=== PATIENT | male | born 1975 | race Caucasian/White ===

== ENCOUNTER 2019-01-18 12:51 | Emergency (ER) | payer OTHER ==
[2019-01-18 13:07] VITALS: BP 145/85; PULSE 73; O2SAT 98
[2019-01-18] MEDS ORDERED: TORAdol 30 mg Injection IM ONE (13:19)
--- NOTE | 2019-01-18 13:27 | ERPHSYRPT ---
- History of Present Illness Time Seen by Provider: 01/18/19 13:24 Source: patient Exam Limitations: no limitations Patient Subjective Stated Complaint: pt here for pain to lower back for a year after a fall, he states the pain in getting worse, he has tried OTC meds with no relief. Triage Nursing Assessment: pt alert, walked in, able to undress self, resp easy , skin w/d/p Physician History: pt here for pain to lower back for a year after a fall, he states the pain in getting worse, he has tried OTC meds with no relief. Timing/Duration: intermittent (for last few months) Method of Injury: unknown Quality: dull, pressure Back Pain Location: lumbar spine Severity of Pain-Max: mild Severity of Pain-Current: moderate Modifying Factors: Improves With: pain medication Associated Symptoms: denies symptoms Allergies/Adverse Reactions: No Known Drug Allergies Allergy (Unverified 01/18/19 13:36) Home Medications: Escitalopram Oxalate [Lexapro] 20 mg DAILY 01/18/19 [History] Levothyroxine Sodium 100 mcg DAILY 01/18/19 [History] PANTOPRAZOLE 40 mg Tablet [Protonix 40MG Tablet] 40 mg DAILY 01/18/19 [ History] Hx Tetanus, Diphtheria Vaccination/Date Given: No Hx Influenza Vaccination/Date Given: No Hx Pneumococcal Vaccination/Date Given: No Immunizations Up to Date: Yes - Review of Systems Constitutional: No Symptoms Eyes: No Symptoms Ears, Nose, & Throat: No Symptoms Respiratory: No Symptoms Cardiac: No Symptoms Abdominal/Gastrointestinal: No Symptoms Musculoskeletal: Back Pain Skin: No Symptoms - Past Medical History Pertinent Past Medical History: No - Past Surgical History Past Surgical History: Yes Gastrointestinal: Appendectomy Musculoskeletal: Orthopedic Surgery Other Surgical History: right knee x2, elbow surgery - Social History Smoking Status: Never smoker Exposure to second hand smoke: No Drug Use: none Patient Lives Alone: No - Nursing Vital Signs Nursing Vital Signs: Initial Vital Signs Temperature 98.2 F 01/18/19 13:02 Pulse Rate 73 01/18/19 13:02 Respiratory Rate 16 01/18/19 13:02 Blood Pressure 145/85 01/18/19 13:02 O2 Sat by Pulse Oximetry 98 01/18/19 13:02 Pain Scale Pain Intensity [] 7 Pain Intensity 7 - Physical Exam General Appearance: no apparent distress Eye Exam: PERRL/EOMI Ears, Nose, Throat Exam: normal ENT inspection Neck Exam: normal inspection Respiratory Exam: normal breath sounds Cardiovascular Exam: regular rate/rhythm Back Exam: decreased range of motion, muscle spasm, No CVA tenderness, No vertebral tenderness, No rash, No point tenderness SpO2: 98 - Radiology Exams L-Spine X-ray Interpretation: Reviewed by me (no acute fracture) Ordered Tests: Active Orders 24 hr Category Date Time Status THORACOLUMBAR SPINE Stat Exams 01/18/19 13:20 Taken Medication Summary Discontinued Medications Generic Name Dose Route Start Last Admin Trade Name Freq PRN Reason Stop Dose Admin Ketorolac Tromethamine 60 mg 01/18/19 13:19 01/18/19 13:39 Toradol 30 Mg Injection IM 01/18/19 13:20 60 mg STAT ONE Administration Ketorolac Tromethamine Confirm 01/18/19 13:37 Toradol 30 Mg Injection Administered 01/18/19 13:38 Dose 60 mg .ROUTE .STK-MED ONE - Progress Progress: improved, pain not gone completely Counseled pt/family regarding: diagnosis, need for follow-up, rad results - Departure Departure Disposition: Home Clinical Impression: Muscle spasm of back Condition: Stable Critical Care Time: No Instructions: Low Back Pain (DC), Back Exercises, Strengthening Your Lower Body and Core Additional Instructions: Discharge/Care Plan ISAIASBHARATH KELLY was seen on 01/18/19 in the Emergency Room. The patient was counseled regarding Diagnosis,Lab results, Imaging studies, need for follow up and when to return to the Emergency Room. Prescriptions given: Discharge Note I have spoken with the patient and/or caregivers. I have explained the patient' s condition, diagnosis and treatment plan based on the information available to me at this time. I have answered the patient's and/or caregiver's questions and addressed any concerns. The patient and/or caregivers have as good understanding of the patient's diagnosis, condition and treatment plan as can be expected at this point. The vital signs have been stable. The patient's condition is stable and appropriate for discharge from the emergency department. The patient will pursue further outpatient evaluation with the primary care physician or other designated or consulting physician as outlined in the discharge instructions. The patient and/or caregivers are agreeable to this plan of care and follow-up instructions have been explained in detail. The patient and/or caregivers have received these instruction. The patient/and or caregivers are aware that any significant change in condition or worsening of symptoms should prompt an immediate return to this or the closest emergency department or call 911. Prescriptions: Cyclobenzaprine HCl 10 mg [Flexeril 10 MG] 10 mg PO TID #30 tablet Naproxen 375 mg [Naprosyn 375 mg] 375 mg PO Q8H #30 tablet
[2019-01-18] MEDS ORDERED: TORAdol 30 mg Injection ONE (13:37)
--- NOTE | 2019-01-18 18:41 | XRAY ---
Indication: Right-sided pain. Remote fall over a year ago. Comparison: None AP/lateral spine centered at thoracolumbar junction demonstrates normal alignment with very minimal T12-L3 anterior wedging either transitional segments versus old injury. No other bony, articular, or soft tissue abnormalities.
== END 2019-01-18 14:17 | disposition home or self-care (01) ==
LOC: ED 12:51
DX: M62.830 Muscle spasm of back (principal); W19.XXXD Unspecified fall, subsequent encounter
CPT/HCPCS: 72080; 96372; 99284; J1885

== ENCOUNTER 2019-02-10 16:42 | Emergency (ER) | payer OTHER ==
[2019-02-10 17:43] VITALS: BP 150/87; PULSE 88; O2SAT 98
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
[2019-02-10] MEDS ORDERED: BACTRIM DS TABLET PO ONE (19:39)
[2019-02-10] MEDS: BACTRIM DS TABLET PO STA (19:41)
--- NOTE | 2019-02-11 08:52 | XRAY ---
Indication: 3rd MCP pain and swelling. No known injury. Comparison: None 3 views of the left hand demonstrates mild radiocarpal joint space narrowing. No other bony, articular, or soft tissue abnormalities.
== END 2019-02-10 19:53 | disposition home or self-care (01) ==
LOC: ED 16:42
DX: L03.114 Cellulitis of left upper limb (principal); R03.0 Elevated blood-pressure reading, without diagnosis of hypertension
CPT/HCPCS: 73130; 99283; A9270-GY

== ENCOUNTER 2019-05-11 10:18 | Emergency (ER) | payer OTHER ==
--- NOTE | 2019-05-11 10:46 | ERPHSYRPT ---
- History of Present Illness Time Seen by Provider: 05/11/19 10:30 Source: patient, family, old records ([facility]/ Dr Sigala's labs) Exam Limitations: no limitations Patient Subjective Stated Complaint: Pt states "I had a mini stroke on the and ever since then I have not felt right since. This morning I am shakey and I cannot open my eyes I get so dizzy." Triage Nursing Assessment: Pt presented to the ed alert and oriented X 3, skin pwd Pt ambulates with an upright steady gait, able to speak in clear full sentences. Pt in no apparent respiratory distress. Physician History: Vertiginous for several days, workup at [facility] including MRI , CT Feeling worse now Timing/Duration: day(s) (6) Severity: moderate Character of Deficits: impaired speech Baseline/Normal Cognition: alert 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 Current Cognition: alert 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 Associated Symptoms: nausea, numbness/tingling in legs/feet, slurred speech, trouble walking Allergies/Adverse Reactions: No Known Drug Allergies Allergy (Verified 02/04/19 20:34) Home Medications: Escitalopram Oxalate [Lexapro] 20 mg DAILY 01/18/19 [History] Levothyroxine Sodium 100 mcg DAILY 01/18/19 [History] PANTOPRAZOLE 40 mg Tablet [Protonix 40MG Tablet] 40 mg PO DAILY 01/18/19 [ History] Hx Tetanus, Diphtheria Vaccination/Date Given: Yes Hx Influenza Vaccination/Date Given: Yes Hx Pneumococcal Vaccination/Date Given: No Immunizations Up to Date: Yes - Past Medical History Pertinent Past Medical History: Yes Neurological History: No Pertinent History ENT History: No Pertinent History Cardiac History: No Pertinent History Respiratory History: No Pertinent History Endocrine Medical History: Hypothyroidism Musculoskeletal History: No Pertinent History GI Medical History: GERD History: No Pertinent History Psycho-Social History: No Pertinent History Male Reproductive Disorders: No Pertinent History Other Medical History: spontaneous pneumo, appendectomy, r knee surgery x2, ulnar nerve surgery - Past Surgical History Past Surgical History: Yes Respiratory: Other Gastrointestinal: Appendectomy Musculoskeletal: Orthopedic Surgery Other Surgical History: right knee x2, elbow surgery - Social History Smoking Status: Never smoker Exposure to second hand smoke: No Drug Use: none Patient Lives Alone: No - Nursing Vital Signs Nursing Vital Signs: Initial Vital Signs Temperature 97.8 F 05/11/19 10:23 Pulse Rate 68 05/11/19 10:23 Respiratory Rate 18 05/11/19 10:23 Blood Pressure 144/96 05/11/19 10:23 O2 Sat by Pulse Oximetry 95 05/11/19 10:23 Pain Scale Pain Intensity 0 - Omer Coma Scale Best Eye Response ([place]): (4) open spontaneously Best Verbal Response ([place]): (5) oriented Best Motor Response ([place]): (6) obeys commands Omer Total: 15 - Physical Exam General Appearance: mild distress Eye Exam: bilateral eye: abnormal EOM (nystagmus with manuevers) Ears, Nose, Throat Exam: normal ENT inspection, moist mucous membranes Neck Exam: normal inspection, non-tender, supple Respiratory: normal breath sounds, lungs clear, airway intact, No respiratory distress Cardiovascular: regular rate/rhythm, No edema Gastrointestinal: soft, No tenderness, No distention Back Exam: normal inspection Extremity Exam: normal inspection, No pedal edema Peripheral Pulses: carotid (R): 2+, carotid (L): 2+ Mental Status: alert, 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, 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 Exam: normal hearing, normal speech, PERRL, tongue midline, No abnormal eye position, No abnormal gag reflex, No abnormal pupil position, No abnormal speech , No facial asymmetry, No facial droop, No facial paresthesias, No facial weakness, No gaze palsy, No hearing deficit (R), No hearing deficit (L), No tongue deviation to R Coordination/Gait: normal finger to nose, normal cerebellar function Motor/Sensory: no motor deficit, no sensory deficit, no pronator drift Skin Exam: normal color, warm, dry, No rash SpO2 Interpretation: normal SpO2: 95 O2 Delivery: Room Air - Course Nursing assessment & vital signs reviewed: Yes EKG Interpreted by Me: RATE (70), Sinus Rhythm, NORMAL AXIS, NORMAL INTERVALS, NORMAL QRS Ordered Tests: Active Orders 24 hr Category Date Time Status Broadband Engineer STAT Care 05/11/19 10:59 Active EKG-ER Only STAT Care 05/11/19 10:45 Active IV Insertion STAT Care 05/11/19 10:45 Active NPO (ED) STAT Care 05/11/19 10:46 Active CBC W DIFF Stat Lab 05/11/19 10:56 Completed CMP Stat Lab 05/11/19 10:56 Completed Lactic Acid Stat Lab 05/11/19 10:45 Completed PROTIME WITH INR Stat Lab 05/11/19 10:56 Completed TROPONIN Stat Lab 05/11/19 11:04 Completed UA W/RFX UR CULTURE Stat Lab 05/11/19 10:46 Uncollected Medication Summary Discontinued Medications Generic Name Dose Route Start Last Admin Trade Name Olivia PRN Reason Stop Dose Admin Diazepam 2.5 mg 05/11/19 10:47 05/11/19 10:54 Valium 10 Mg/2 Ml Syringe IV 05/11/19 10:48 2.5 mg STAT ONE Administration Diazepam Confirm 05/11/19 10:52 Valium 10 Mg/2 Ml Syringe Administered 05/11/19 10:53 Dose 10 mg .ROUTE .STK-MED ONE Meclizine HCl 25 mg 05/11/19 10:48 05/11/19 10:54 Antivert 25 Mg PO 05/11/19 10:49 25 mg STAT ONE Administration Meclizine HCl Confirm 05/11/19 10:52 Antivert 25 Mg Administered 05/11/19 10:53 Dose 25 mg .ROUTE .STK-MED ONE Lab/Rad Data: Laboratory Result Diagrams 05/11/19 10:56 05/11/19 10:56 Laboratory Results 05/11/19 05/11/19 05/11/19 Range/Units 11:04 10:56 10:56 WBC (4.0-10.5) K/mm3 RBC (4.1-5.6) M/mm3 Hgb (12.5-18.0) gm/dl Hct (42-50) % MCV (78-100) fl MCH (26-32) pg MCHC (32-36) g/dl RDW (11.5-14.0) % Plt Count (150-450) K/mm3 MPV (7.5-11.0) fl Gran % (36.0-66.0) % Eos # (Auto) (0-0.5) Absolute Lymphs (auto) (1.0-4.6) Absolute Monos (auto) (0.0-1.3) Lymphocytes % (24.0-44.0) % Monocytes % (0.0-12.0) % Eosinophils % (0.00-5.0) % Basophils % (0.0-0.4) % Absolute Granulocytes (1.4-6.9) Basophils # (0-0.4) PT 11.4 (8.83-12.87) SECONDS INR 1.01 (0.8-3.0) Sodium 139 (137-145) mmol/L Potassium 4.0 (3.5-5.1) mmol/L Chloride 105 (98-107) mmol/L Carbon Dioxide 25 (22-30) mmol/L Anion Gap 12.7 (5-15) MEQ/L BUN 15 (9-20) mg/dL Creatinine 1.03 (0.66-1.25) mg/dL Estimated GFR > 60.0 ML/MIN Glucose 95 (74-106) mg/dL Lactic Acid (0.4-2.0) Calcium 8.9 (8.4-10.2) mg/dL Total Bilirubin 0.70 (0.2-1.3) mg/dL AST 31 (17-59) U/L ALT 35 (0-50) U/L Alkaline Phosphatase 133 H (38-126) U/L Troponin I < 0.012 (0.000-0.034) ng/mL Serum Total Protein 7.6 (6.3-8.2) g/dL Albumin 4.2 (3.5-5.0) g/dL 05/11/19 05/11/19 Range/Units 10:56 10:45 WBC 9.8 (4.0-10.5) K/mm3 RBC 4.94 (4.1-5.6) M/mm3 Hgb 15.5 (12.5-18.0) gm/dl Hct 46.5 (42-50) % MCV 94.1 (78-100) fl MCH 31.4 (26-32) pg MCHC 33.3 (32-36) g/dl RDW 14.2 H (11.5-14.0) % Plt Count 194 (150-450) K/mm3 MPV 10.0 (7.5-11.0) fl Gran % 61.6 (36.0-66.0) % Eos # (Auto) 0.36 (0-0.5) Absolute Lymphs (auto) 2.50 (1.0-4.6) Absolute Monos (auto) 0.86 (0.0-1.3) Lymphocytes % 25.6 (24.0-44.0) % Monocytes % 8.8 (0.0-12.0) % Eosinophils % 3.7 (0.00-5.0) % Basophils % 0.3 (0.0-0.4) % Absolute Granulocytes 6.03 (1.4-6.9) Basophils # 0.03 (0-0.4) PT (8.83-12.87) SECONDS INR (0.8-3.0) Sodium (137-145) mmol/L Potassium (3.5-5.1) mmol/L Chloride (98-107) mmol/L Carbon Dioxide (22-30) mmol/L Anion Gap (5-15) MEQ/L BUN (9-20) mg/dL Creatinine (0.66-1.25) mg/dL Estimated GFR ML/MIN Glucose (74-106) mg/dL Lactic Acid 1.2 (0.4-2.0) Calcium (8.4-10.2) mg/dL Total Bilirubin (0.2-1.3) mg/dL AST (17-59) U/L ALT (0-50) U/L Alkaline Phosphatase (38-126) U/L Troponin I (0.000-0.034) ng/mL Serum Total Protein (6.3-8.2) g/dL Albumin (3.5-5.0) g/dL - Progress Progress: unchanged - Departure Departure Disposition: Home Clinical Impression: Vertigo Condition: Stable Critical Care Time: No Referrals: SAVANAH SHEPHERD DO [ACTIVE STAFF] - Instructions: Vertigo (a Type of Dizziness) (DC) Prescriptions: Diazepam 5 mg [Valium 5 MG] 5 mg PO TID #10 tablet Meclizine HCl 25 mg [Antivert 25 mg] 25 mg PO Q8H #10 tablet
[2019-05-11] MEDS ORDERED: VALIUM 10 MG/2 ML SYRINGE IV ONE (10:47)
[2019-05-11] MEDS ORDERED: ANTIVERT 25 MG PO ONE (10:48)
[2019-05-11] MEDS ORDERED: ANTIVERT 25 MG ONE (10:52)
[2019-05-11] MEDS ORDERED: VALIUM 10 MG/2 ML SYRINGE ONE (10:52)
[2019-05-11 10:56] LABS: Absolute Neutrophil Ct (ANC) 6.03 (1.4-6.9); BASOPHIL % 0.3 % (0.0-0.4); Basophil (Absolute #) 0.03 (0-0.4); Eosinophil % 3.7 % (0.00-5.0); Eosinophil (Absolute #) 0.36 (0-0.5); Hematocrit 46.5 % (42-50); Hemoglobin 15.5 gm/dl (12.5-18.0); Lymphocytes % 25.6 % (24.0-44.0); Mean Cell Volume 94.1 fl (78-100); Mean Corpuscular Hemoglobin 31.4 pg (26-32); Mean Corpuscular Hgb Concent. 33.3 g/dl (32-36); Monocyte (Absolute #) 0.86 (0.0-1.3); Monocytes % 8.8 % (0.0-12.0); Neutrophil % 61.6 % (36.0-66.0); Platelet Count 194 K/mm3 (150-450); Red Blood Count 4.94 M/mm3 (4.1-5.6); Red Cell Distribution Width 14.2 % (11.5-14.0); White Blood Count 9.8 K/mm3 (4.0-10.5)
[2019-05-11 11:05] LABS: INR 1.01 (0.8-3.0); PROTIME 11.4 SECONDS (8.83-12.87)
[2019-05-11 11:08] LABS: ALBUMIN 4.2 g/dL (3.5-5.0); ALKALINE PHOSPHATASE 133 U/L (38-126); ANION GAP 12.7 MEQ/L (5-15); BLOOD UREA NITROGEN 15 mg/dL (9-20); CHLORIDE 105 mmol/L (98-107); Calcium 8.9 mg/dL (8.4-10.2); Carbon Dioxide 25 mmol/L (22-30); Creatinine 1 1.03 mg/dL (0.66-1.25); Glucose 95 mg/dL (74-106); SGOT/AST 31 U/L (17-59); SGPT/ALT 35 U/L (0-50); SODIUM 139 mmol/L (137-145); Total Protein 7.6 g/dL (6.3-8.2)
[2019-05-11 11:35] VITALS: O2SAT 95
[2019-05-11 11:59] VITALS: BP 129/88; PULSE 68
== END 2019-05-11 12:03 | disposition home or self-care (01) ==
LOC: ED 10:18
DX: R42 Dizziness and giddiness (principal)
CPT/HCPCS: 36000; 36415; 80053; 83605; 84484; 85025; 85610; 93005; 93041; 96374; 99284; J3360; A9270-GY

== ENCOUNTER 2019-07-15 20:03 | Emergency (ER) | payer OTHER ==
[2019-07-15] MEDS ORDERED: Zofran 4 MG/2 ML VIAL IV ONE (21:18)
[2019-07-15] MEDS ORDERED: SUBLIMAZE 100 MCG/2 ML IV ONE (21:18)
--- NOTE | 2019-07-15 21:18 | ERPHSYRPT ---
- History of Present Illness Time Seen by Provider: 07/15/19 21:11 Source: patient Exam Limitations: no limitations Patient Subjective Stated Complaint: Patient states that his headache started early Sunday morning and also experienced vomiting that same day. Patient states that he used to get headaches all the time, but this is the first headache he has had in about 6 months. Patient has seen a specialist for migraines and changed diet and quit having problems until now. Triage Nursing Assessment: Patient is ambulatory, alert and oriented, is sensitive to light and sound. [place] headache as constant and pounding, feels like a hot poker is being stuck through the back of head through eyes. Physician History: Pt has had generalized abdominal pain, decreased urine output, a constant headache, left posterior neck pain and vomiting for the past 3 days. LBM was 4 days ago & wnl. Pt denies chest pain, fever, shortness of air. Allergies/Adverse Reactions: No Known Drug Allergies Allergy (Verified 07/15/19 21:06) Home Medications: Levothyroxine Sodium 100 mcg DAILY 01/18/19 [History] PANTOPRAZOLE 40 mg Tablet [Protonix 40MG Tablet] 40 mg PO DAILY 01/18/19 [ History] Bupropion HCl Xl 150 mg [Wellbutrin XL 150 MG] 150 mg PO DAILY 07/15/19 [ History] SUMAtriptan succinate [Imitrex 50 mg] 100 mg PO PRN 07/15/19 [History] Sertraline HCl 50 mg [Zoloft 50 mg Tablet] 50 mg PO DAILY 07/15/19 [History] Hx Tetanus, Diphtheria Vaccination/Date Given: Yes Hx Influenza Vaccination/Date Given: Yes Hx Pneumococcal Vaccination/Date Given: No Immunizations Up to Date: Yes Travel Risk - International Travel Have you traveled outside of the country in past 3 weeks: No Have you or anyone close to you been diagnosed with or: No Do your reside in a community with a known COVID-19 case?: Yes If Yes where:: [facility] - Coronavirus Screening Has patient experienced Coronavirus symptoms: Yes Symptoms experienced: severe headache - Review of Systems Constitutional: No Fever, No Chills Respiratory: No Dyspnea Cardiac: No Chest Pain Abdominal/Gastrointestinal: Abdominal Pain, Nausea, Vomiting, No Diarrhea Genitourinary Symptoms: Other (decreased urine output since 3 days ago.), No Dysuria Musculoskeletal: Neck Pain Neurological: Headache All Other Systems: Reviewed and Negative - Past Medical History Pertinent Past Medical History: Yes Neurological History: No Pertinent History, Migraines ENT History: No Pertinent History Cardiac History: No Pertinent History Respiratory History: No Pertinent History Endocrine Medical History: Hypothyroidism Musculoskeletal History: No Pertinent History GI Medical History: GERD History: No Pertinent History Psycho-Social History: No Pertinent History Male Reproductive Disorders: No Pertinent History Other Medical History: spontaneous pneumo, appendectomy, r knee surgery x2, ulnar nerve release surgery - Past Surgical History Past Surgical History: Yes Neuro Surgical History: No Pertinent History Cardiac: No Pertinent History Respiratory: Other Gastrointestinal: Appendectomy Genitourinary: No Pertinent History Musculoskeletal: Orthopedic Surgery Male Surgical History: No Pertinent History Other Surgical History: right knee x2, elbow surgery - Social History Smoking Status: Never smoker Exposure to second hand smoke: No Drug Use: none Patient Lives Alone: No - Nursing Vital Signs Nursing Vital Signs: Initial Vital Signs Temperature 98.2 F 07/15/19 20:49 Pulse Rate 69 07/15/19 20:49 Respiratory Rate 19 07/15/19 20:49 Blood Pressure 138/94 07/15/19 20:49 O2 Sat by Pulse Oximetry 97 07/15/19 20:49 Pain Scale Pain Intensity 3 - Physical Exam General Appearance: alert Eye Exam: PERRL/EOMI Ears, Nose, Throat Exam: pharynx normal Neck Exam: normal inspection, non-tender Respiratory Exam: normal breath sounds Cardiovascular Exam: normal heart sounds Gastrointestinal/Abdominal Exam: soft, normal bowel sounds Back Exam: normal range of motion Extremity Exam: normal range of motion 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, 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: normal speech, PERRL, tongue midline Motor/Sensory Exam: no motor deficit, no sensory deficit Skin Exam: warm, dry SpO2 Interpretation: normal SpO2: 97 O2 Delivery: Room Air - Course Nursing assessment & vital signs reviewed: Yes Ordered Tests: Active Orders 24 hr Category Date Time Status IV Insertion STAT Care 07/15/19 21:18 Active Isolation, Initiate & Maintain Q4H Care 07/15/19 21:05 Active ABDOMEN AND PELVIS W/0 CONTRAS [CT] Stat Exams 07/15/19 21:19 Ordered HEAD WITHOUT CONTRAST [CT] Stat Exams 04/07/20 21:20 Ordered NECK WO CONTRAST [CT] Stat Exams 07/15/19 21:20 Ordered AMYLASE Stat Lab 07/15/19 21:40 Completed CBC W DIFF Stat Lab 07/15/19 21:40 Completed CMP Stat Lab 07/15/19 21:40 Completed LIPASE Stat Lab 07/15/19 21:40 Completed UA W/RFX UR CULTURE Stat Lab 07/15/19 21:18 Uncollected Medication Summary Generic Name Dose Route Start Last Admin Trade Name Freq PRN Reason Stop Dose Admin Sodium Chloride 1,000 mls @ 100 mls/hr 07/15/19 21:30 07/15/19 21:31 Sodium Chloride 0.9% 1000 Ml IV 08/14/19 21:29 100 mls/hr .Q10H KRISTOPHER Administration Discontinued Medications Generic Name Dose Route Start Last Admin Trade Name Freq PRN Reason Stop Dose Admin Fentanyl Citrate 100 mcg 07/15/19 21:18 07/15/19 21:31 Sublimaze 100 Mcg/2 Ml IV 07/15/19 21:19 100 mcg STAT ONE Administration Fentanyl Citrate Confirm 07/15/19 21:30 Sublimaze 100 Mcg/2 Ml Administered 07/15/19 21:31 Dose 100 mcg .ROUTE .STK-MED ONE Ondansetron HCl 4 mg 07/15/19 21:18 07/15/19 21:31 Zofran 4 Mg/2 Ml Vial IV 07/15/19 21:19 4 mg STAT ONE Administration Ondansetron HCl Confirm 07/15/19 21:29 Zofran 4 Mg/2 Ml Vial Administered 07/15/19 21:30 Dose 4 mg .ROUTE .STK-MED ONE Lab/Rad Data: Laboratory Result Diagrams 07/15/19 21:40 07/15/19 21:40 Laboratory Results 07/15/19 07/15/19 Range/Units 21:40 21:40 WBC 9.9 (4.0-10.5) K/mm3 RBC 4.95 (4.1-5.6) M/mm3 Hgb 16.3 (12.5-18.0) gm/dl Hct 47.1 (42-50) % MCV 95.2 (78-100) fl MCH 32.9 H (26-32) pg MCHC 34.6 (32-36) g/dl RDW 14.1 H (11.5-14.0) % Plt Count 200 (150-450) K/mm3 MPV 9.7 (7.5-11.0) fl Gran % 64.8 (36.0-66.0) % Eos # (Auto) 0.20 (0-0.5) Absolute Lymphs (auto) 2.53 (1.0-4.6) Absolute Monos (auto) 0.72 (0.0-1.3) Lymphocytes % 25.5 (24.0-44.0) % Monocytes % 7.3 (0.0-12.0) % Eosinophils % 2.0 (0.00-5.0) % Basophils % 0.4 (0.0-0.4) % Absolute Granulocytes 6.42 (1.4-6.9) Basophils # 0.04 (0-0.4) Sodium 142 (137-145) mmol/L Potassium 3.9 (3.5-5.1) mmol/L Chloride 107 (98-107) mmol/L Carbon Dioxide 27 (22-30) mmol/L Anion Gap 11.9 (5-15) MEQ/L BUN 10 (9-20) mg/dL Creatinine 0.94 (0.66-1.25) mg/dL Estimated GFR > 60.0 ML/MIN Glucose 90 (74-106) mg/dL Calcium 9.1 (8.4-10.2) mg/dL Total Bilirubin 0.60 (0.2-1.3) mg/dL AST 24 (17-59) U/L ALT 31 (0-50) U/L Alkaline Phosphatase 140 H (38-126) U/L Serum Total Protein 7.7 (6.3-8.2) g/dL Albumin 4.3 (3.5-5.0) g/dL Amylase 81 (30-110) U/L Lipase 70 (23-300) U/L - Progress Progress: improved Progress Note: 07/15/19 23:[address] scans and u/a. Counseled pt/family regarding: lab results - Departure Departure Disposition: Home Clinical Impression: Migraine headache Condition: Fair Critical Care Time: No Referrals: MARY BURGESS [Primary Care Provider] - Instructions: Headache, Adult (DC) Additional Instructions: Follow up with private doctor tomorrow.
[2019-07-15] MEDS ORDERED: Zofran 4 MG/2 ML VIAL ONE (21:29)
[2019-07-15] MEDS ORDERED: Sodium Chloride 0.9% 1000 ML 1,000 ML IV SCH (21:30)
[2019-07-15] MEDS ORDERED: SUBLIMAZE 100 MCG/2 ML ONE (21:30)
[2019-07-15] MEDS ORDERED: Sodium Chloride 0.9% 1000 ML 1,000 ML ONE (21:30)
[2019-07-15 21:48] LABS: Absolute Neutrophil Ct (ANC) 6.42 (1.4-6.9); BASOPHIL % 0.4 % (0.0-0.4); Basophil (Absolute #) 0.04 (0-0.4); Hematocrit 47.1 % (42-50); Hemoglobin 16.3 gm/dl (12.5-18.0); Lymphocyte (Absolute #) 2.53 (1.0-4.6); Lymphocytes % 25.5 % (24.0-44.0); Mean Cell Volume 95.2 fl (78-100); Mean Corpuscular Hemoglobin 32.9 pg (26-32); Mean Corpuscular Hgb Concent. 34.6 g/dl (32-36); Mean Platelet Volume 9.7 fl (7.5-11.0); Monocyte (Absolute #) 0.72 (0.0-1.3); Monocytes % 7.3 % (0.0-12.0); Neutrophil % 64.8 % (36.0-66.0); Platelet Count 200 K/mm3 (150-450); Red Blood Count 4.95 M/mm3 (4.1-5.6); Red Cell Distribution Width 14.1 % (11.5-14.0); White Blood Count 9.9 K/mm3 (4.0-10.5)
[2019-07-15 22:00] LABS: ALBUMIN 4.3 g/dL (3.5-5.0); ALKALINE PHOSPHATASE 140 U/L (38-126); AMYLASE 81 U/L (30-110); BLOOD UREA NITROGEN 10 mg/dL (9-20); CHLORIDE 107 mmol/L (98-107); Calcium 9.1 mg/dL (8.4-10.2); Carbon Dioxide 27 mmol/L (22-30); Creatinine 1 0.94 mg/dL (0.66-1.25); Glucose 90 mg/dL (74-106); LIPASE 70 U/L (23-300); SGOT/AST 24 U/L (17-59); SGPT/ALT 31 U/L (0-50); SODIUM 142 mmol/L (137-145); Total Protein 7.7 g/dL (6.3-8.2)
[2019-07-15 22:04] LABS: ANION GAP 11.9 MEQ/L (5-15); Potassium 3.9 mmol/L (3.5-5.1)
[2019-07-15 23:04] VITALS: BP 129/89; PULSE 62
[2019-07-15 23:09] VITALS: O2SAT 97
== END 2019-07-15 23:15 | disposition home or self-care (01) ==
LOC: ED 20:03
DX: G43.909 Migraine, unspecified, not intractable, without status migrainosus (principal)
CPT/HCPCS: 36000; 36415; 80053; 82150; 83690; 85025; 96374; 96375; 99284; J2405; J3010

== ENCOUNTER 2019-07-31 07:58 | Emergency (ER) | payer OTHER ==
[2019-07-31] MEDS ORDERED: TORAdol 30 mg Injection IV ONE (08:18)
[2019-07-31] MEDS ORDERED: Sodium Chloride 0.9% 1000 ML 1,000 ML IV STA (08:18)
[2019-07-31] MEDS ORDERED: Zofran 4 MG/2 ML VIAL IV ONE (08:18)
[2019-07-31] MEDS ORDERED: Hydromorphone 1 mg/ml Ampule IV ONE ×2 (08:18→09:36)
--- NOTE | 2019-07-31 08:18 | ERPHSYRPT ---
- History of Present Illness Time Seen by Provider: 07/31/19 08:15 Historian: patient Exam Limitations: clinical condition Physician History: This is a 44-year-old white male who has history of kidney stones and ureteral stones in the past. He presents with sudden onset of right flank pain that goes down into his right inguinal region. He has no significant abdominal pain. He has no nausea vomiting or diarrhea. He has no chest pain or shortness of breath. Patient states he was having difficulty urinating this morning but did notice some gross hematuria. Timing/Duration: today, constant, sudden, worse Activities at Onset: none Quality: sharpness, stabbing Abdominal Pain Onset Location: flank (Right flank) Pain Radiation: groin (Right groin) Severity of Pain-Max: moderate Severity of Pain-Current: moderate Modifying Factors: Improves With: nothing Associated Symptoms: denies symptoms Previous symptoms: same symptoms as today Allergies/Adverse Reactions: No Known Drug Allergies Allergy (Verified 07/31/19 08:17) Home Medications: Levothyroxine Sodium 100 mcg DAILY 01/18/19 [History] PANTOPRAZOLE 40 mg Tablet [Protonix 40MG Tablet] 40 mg PO DAILY 01/18/19 [ History] Bupropion HCl Xl 150 mg [Wellbutrin XL 150 MG] 150 mg PO DAILY 07/15/19 [ History] SUMAtriptan succinate [Imitrex 50 mg] 100 mg PO PRN 07/15/19 [History] Sertraline HCl 50 mg [Zoloft 50 mg Tablet] 50 mg PO DAILY 07/15/19 [History] Aspirin EC 81 mg [Ecotrin 81 mg] 81 mg PO DAILY 07/31/19 [History] Atorvastatin Calcium [Lipitor] 40 mg PO DAILY 07/31/19 [History] Clopidogrel Bisulfate [Clopidogrel] 75 mg PO DAILY 07/31/19 [History] Hx Tetanus, Diphtheria Vaccination/Date Given: Yes Hx Influenza Vaccination/Date Given: Yes Hx Pneumococcal Vaccination/Date Given: No Travel Risk - International Travel Have you traveled outside of the country in past 3 weeks: No Have you or anyone close to you been diagnosed with or: No Do your reside in a community with a known COVID-19 case?: Yes If Yes where:: [facility] - Coronavirus Screening Has patient experienced Coronavirus symptoms: No - Review of Systems Constitutional: No Symptoms Eyes: No Symptoms Ears, Nose, & Throat: No Symptoms Respiratory: No Symptoms Cardiac: No Symptoms Abdominal/Gastrointestinal: Nausea (Canary to pain) Genitourinary Symptoms: Flank Pain (Right side) Musculoskeletal: No Symptoms Skin: No Symptoms Neurological: No Symptoms Psychological: No Symptoms Endocrine: No Symptoms Hematologic/Lymphatic: No Symptoms Immunological/Allergic: No Symptoms All Other Systems: Reviewed and Negative - Past Medical History Pertinent Past Medical History: Yes Neurological History: No Pertinent History, Migraines ENT History: No Pertinent History Cardiac History: No Pertinent History Respiratory History: No Pertinent History Endocrine Medical History: Hypothyroidism Musculoskeletal History: No Pertinent History GI Medical History: GERD History: No Pertinent History Psycho-Social History: No Pertinent History Male Reproductive Disorders: No Pertinent History Other Medical History: spontaneous pneumo, appendectomy, r knee surgery x2, ulnar nerve release surgery - Past Surgical History Past Surgical History: Yes Neuro Surgical History: No Pertinent History Cardiac: No Pertinent History Respiratory: Other Gastrointestinal: Appendectomy Genitourinary: No Pertinent History Musculoskeletal: Orthopedic Surgery Male Surgical History: No Pertinent History Other Surgical History: right knee x2, elbow surgery - Social History Smoking Status: Never smoker Exposure to second hand smoke: No Drug Use: none Patient Lives Alone: No - Nursing Vital Signs Nursing Vital Signs: Initial Vital Signs Temperature 98.1 F 07/31/19 08:07 Pulse Rate 80 07/31/19 08:07 Respiratory Rate 20 07/31/19 08:07 Blood Pressure 125/101 07/31/19 08:07 O2 Sat by Pulse Oximetry 96 07/31/19 08:07 Pain Scale Pain Intensity 10 - Physical Exam General Appearance: moderate distress, alert, anxiety Eye Exam: PERRL/EOMI, eyes nml inspection Ears, Nose, Throat Exam: normal ENT inspection, moist mucous membranes Neck Exam: normal inspection, non-tender, supple, full range of motion Respiratory Exam: normal breath sounds, lungs clear, airway intact, No chest tenderness, No respiratory distress Cardiovascular Exam: regular rate/rhythm, normal heart sounds, normal peripheral pulses Gastrointestinal/Abdomen Exam: soft, normal bowel sounds, No tenderness Rectal Exam: not done Back Exam: CVA tenderness (Right flank), No vertebral tenderness Extremity Exam: normal inspection, normal range of motion, pelvis stable Neurologic Exam: alert, 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, cooperative, felt dyeing machine tender II-XII nml as tested Skin Exam: normal color, warm, dry Lymphatic Exam: No adenopathy SpO2 Interpretation: normal O2 Delivery: Room Air - Course Nursing assessment & vital signs reviewed: Yes Ordered Tests: Active Orders 24 hr Category Date Time Status IV Insertion STAT Care 07/31/19 08:18 Active ABDOMEN AND PELVIS W/0 CONTRAS [CT] Stat Exams 07/31/19 08:18 Completed AMYLASE Stat Lab 07/31/19 08:15 Completed CBC W DIFF Stat Lab 07/31/19 08:15 Completed CMP Stat Lab 07/31/19 08:15 Completed LIPASE Stat Lab 07/31/19 08:15 Completed Lactic Acid Stat Lab 07/31/19 08:26 Completed UA W/RFX UR CULTURE Stat Lab 07/31/19 08:18 Uncollected Medication Summary Discontinued Medications Generic Name Dose Route Start Last Admin Trade Name Freq PRN Reason Stop Dose Admin Hydromorphone HCl 1 mg 07/31/19 08:18 07/31/19 08:25 Hydromorphone 1 Mg/Ml Ampule IV 07/31/19 08:19 1 mg STAT ONE Administration Hydromorphone HCl Confirm 07/31/19 08:22 Hydromorphone 1 Mg/Ml Ampule Administered 07/31/19 08:23 Dose 1 mg .ROUTE .STK-MED ONE Sodium Chloride 1,000 mls @ 999 mls/hr 07/31/19 08:18 07/31/19 08:24 Sodium Chloride 0.9% 1000 Ml IV 07/31/19 09:18 999 mls/hr .Q1H1M STA Administration Sodium Chloride Confirm 07/31/19 08:22 Sodium Chloride 0.9% 1000 Ml Administered 07/31/19 08:23 Dose 1,000 mls @ ud .ROUTE .STK-MED ONE Ketorolac Tromethamine 30 mg 07/31/19 08:18 07/31/19 08:25 Toradol 30 Mg Injection IV 07/31/19 08:19 30 mg STAT ONE Administration Ketorolac Tromethamine Confirm 07/31/19 08:22 Toradol 30 Mg Injection Administered 07/31/19 08:23 Dose 30 mg .ROUTE .STK-MED ONE Ondansetron HCl 4 mg 07/31/19 08:18 07/31/19 08:25 Zofran 4 Mg/2 Ml Vial IV 07/31/19 08:19 4 mg STAT ONE Administration Ondansetron HCl Confirm 07/31/19 08:22 Zofran 4 Mg/2 Ml Vial Administered 07/31/19 08:23 Dose 4 mg .ROUTE .STK-MED ONE Lab/Rad Data: Laboratory Result Diagrams 07/31/19 08:15 07/31/19 08:15 Laboratory Results 07/31/19 07/31/19 07/31/19 Range/Units 08:26 08:15 08:15 WBC 8.3 (4.0-10.5) K/mm3 RBC 5.08 (4.1-5.6) M/mm3 Hgb 16.2 (12.5-18.0) gm/dl Hct 48.1 (42-50) % MCV 94.7 (78-100) fl MCH 31.9 (26-32) pg MCHC 33.7 (32-36) g/dl RDW 14.1 H (11.5-14.0) % Plt Count 212 (150-450) K/mm3 MPV 10.1 (7.5-11.0) fl Gran % 53.1 (36.0-66.0) % Eos # (Auto) 0.31 (0-0.5) Absolute Lymphs (auto) 2.83 (1.0-4.6) Absolute Monos (auto) 0.73 (0.0-1.3) Lymphocytes % 34.0 (24.0-44.0) % Monocytes % 8.8 (0.0-12.0) % Eosinophils % 3.7 (0.00-5.0) % Basophils % 0.4 (0.0-0.4) % Absolute Granulocytes 4.42 (1.4-6.9) Basophils # 0.03 (0-0.4) Sodium 141 (137-145) mmol/L Potassium 4.0 (3.5-5.1) mmol/L Chloride 109 H (98-107) mmol/L Carbon Dioxide 22 (22-30) mmol/L Anion Gap 13.8 (5-15) MEQ/L BUN 12 (9-20) mg/dL Creatinine 0.84 (0.66-1.25) mg/dL Estimated GFR > 60.0 ML/MIN Glucose 114 H (74-106) mg/dL Lactic Acid 2.1 H (0.4-2.0) Calcium 8.9 (8.4-10.2) mg/dL Total Bilirubin 0.60 (0.2-1.3) mg/dL AST 24 (17-59) U/L ALT 24 (0-50) U/L Alkaline Phosphatase 131 H (38-126) U/L Serum Total Protein 7.7 (6.3-8.2) g/dL Albumin 4.3 (3.5-5.0) g/dL Amylase 82 (30-110) U/L Lipase 97 (23-300) U/L - Progress Progress: improved Progress Note: 07/31/19 09:12 Noncontrasted CAT scan of the abdomen pelvis reveals a 7 mm right UVJ calculus. The right ureter is minimally prominent. There is no hydronephrosis and no perinephric fluid present on the right side 07/31/19 09:20 Patient symptoms of pain have improved but are still present. Medical decision making: This patient has a fairly significantly large right ureteral stone at the UV J. There is no hydronephrosis and no perinephric fluid at this time. My concern is that if his symptoms recur or if there is no resolution of his symptoms, this may mean the stone has not passed into the bladder. Therefore, I am going to make arrangements for him to be evaluated by a urologist in [place]. I will send a prescription of [place] to his pharmacy for pain control. In addition, I gave him instructions to drink plenty of fluids and to take ibuprofen 600 mg orally with food 3 times a day. Counseled pt/family regarding: lab results, diagnosis, need for follow-up, rad results - Departure Departure Disposition: Home Clinical Impression: Right ureteral stone Condition: Stable Critical Care Time: No Referrals: MARY BURGESS [Primary Care Provider] - Additional Instructions: Drink plenty of fluids. Take ibuprofen 600 mg orally with food 3 times a day for the next 5 days. Follow-up with the urologist we have made appointment for you to see. Return to the emergency department if your symptoms worsen. Prescriptions: Hydrocodone/APAP 5-325 Tab^^^ [[place] 5-325 Tablet^^^] 1 tab PO Q6HPRN PRN #10 tablet MDD 6 PRN Reason: Pain Tamsulosin HCl 0.4 mg [Flomax 0.4 MG] 0.4 mg PO DAILY #7 cap
[2019-07-31] MEDS ORDERED: Sodium Chloride 0.9% 1000 ML 1,000 ML ONE (08:22)
[2019-07-31] MEDS ORDERED: TORAdol 30 mg Injection ONE (08:22)
[2019-07-31] MEDS ORDERED: Zofran 4 MG/2 ML VIAL ONE (08:22)
[2019-07-31] MEDS ORDERED: Hydromorphone 1 mg/ml Ampule ONE ×2 (08:22→09:38)
[2019-07-31 08:37] LABS: Absolute Neutrophil Ct (ANC) 4.42 (1.4-6.9); BASOPHIL % 0.4 % (0.0-0.4); Basophil (Absolute #) 0.03 (0-0.4); Eosinophil % 3.7 % (0.00-5.0); Eosinophil (Absolute #) 0.31 (0-0.5); Hematocrit 48.1 % (42-50); Hemoglobin 16.2 gm/dl (12.5-18.0); Lymphocyte (Absolute #) 2.83 (1.0-4.6); Mean Cell Volume 94.7 fl (78-100); Mean Corpuscular Hemoglobin 31.9 pg (26-32); Mean Corpuscular Hgb Concent. 33.7 g/dl (32-36); Mean Platelet Volume 10.1 fl (7.5-11.0); Monocyte (Absolute #) 0.73 (0.0-1.3); Monocytes % 8.8 % (0.0-12.0); Neutrophil % 53.1 % (36.0-66.0); Platelet Count 212 K/mm3 (150-450); Red Blood Count 5.08 M/mm3 (4.1-5.6); Red Cell Distribution Width 14.1 % (11.5-14.0); White Blood Count 8.3 K/mm3 (4.0-10.5)
[2019-07-31 08:49] LABS: ALBUMIN 4.3 g/dL (3.5-5.0); ALKALINE PHOSPHATASE 131 U/L (38-126); AMYLASE 82 U/L (30-110); ANION GAP 13.8 MEQ/L (5-15); BLOOD UREA NITROGEN 12 mg/dL (9-20); CHLORIDE 109 mmol/L (98-107); Calcium 8.9 mg/dL (8.4-10.2); Carbon Dioxide 22 mmol/L (22-30); Creatinine 1 0.84 mg/dL (0.66-1.25); Glucose 114 mg/dL (74-106); LIPASE 97 U/L (23-300); SGOT/AST 24 U/L (17-59); SGPT/ALT 24 U/L (0-50); SODIUM 141 mmol/L (137-145); Total Protein 7.7 g/dL (6.3-8.2)
--- NOTE | 2019-07-31 08:57 | XRAY ---
Indication: Right lower quadrant/flank pain and hematuria. History stones. Multiple contiguous axial images obtained through the abdomen and pelvis without contrast using renal stone protocol. Comparison: None Lung bases are clear. Heart is not enlarged. There is a 7 mm elongated distal right UVJ calculus. Proximal right ureter is minimally prominent up to 4-5 mm but no hydronephrosis or perinephric fluid. Right kidney demonstrates 4 additional micro-calculi, largest 4 mm. No renal calculus or evidence for obstructive uropathy on the left. 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 Prostate gland demonstrates benign chunky calcifications. Noncontrasted stomach and bowel loops appear nonobstructed. Previous appendectomy. No free fluid/air. Remaining liver, gallbladder, pancreas, spleen, adrenal glands, kidneys, ureters, and bladder appear unremarkable for noncontrast exam. Mild aortoiliac calcifications without AAA. Osseous structures intact with minimal degenerative changes throughout the spine. 9 mm right superior acetabulum bone island. No ventral or inguinal hernias. Impression: 1. 7 mm right UVJ calculus producing minimal obstruction. Additional right renal micro-calculi. 2. Incidental tiny left renal angiomyolipoma, benign prostate calcifications, and small right acetabulum bone island.
[2019-07-31 09:58] VITALS: BP 156/107; PULSE 82; O2SAT 94
== END 2019-07-31 09:56 | disposition home or self-care (01) ==
LOC: ED 07:58
DX: N20.1 Calculus of ureter (principal); Z87.442 Personal history of urinary calculi; K21.9 Gastro-esophageal reflux disease without esophagitis
CPT/HCPCS: 36000; 36415; 74176; 80053; 82150; 83605; 83690; 85025; 96360; 96374; 96375; 96376; 99284; J1170; J1885; J2405

== ENCOUNTER 2019-08-01 09:51 | Emergency (ER) | payer OTHER ==
[2019-08-01] MEDS ORDERED: Reglan 10 MG/2 ML IV ONE (10:18)
[2019-08-01] MEDS ORDERED: TORAdol 30 mg Injection IV ONE (10:18)
[2019-08-01] MEDS ORDERED: Sodium Chloride 0.9% 1000 ML 1,000 ML IV STA (10:18)
[2019-08-01] MEDS ORDERED: BENADRYL 50 MG/ML IV ONE (10:18)
[2019-08-01] MEDS ORDERED: solu-MEDROL 125 MG IV ONE (10:18)
[2019-08-01] MEDS ORDERED: BENADRYL 50 MG/ML ONE (10:22)
[2019-08-01] MEDS ORDERED: Reglan 10 MG/2 ML ONE (10:23)
[2019-08-01] MEDS ORDERED: TORAdol 30 mg Injection ONE (10:23)
[2019-08-01] MEDS ORDERED: solu-MEDROL 125 MG ONE (10:23)
[2019-08-01] MEDS ORDERED: Sodium Chloride 0.9% 1000 ML 1,000 ML ONE (10:25)
[2019-08-01 10:55] LABS: Absolute Neutrophil Ct (ANC) 4.51 (1.4-6.9); BASOPHIL % 0.4 % (0.0-0.4); Basophil (Absolute #) 0.03 (0-0.4); Hematocrit 44.9 % (42-50); Hemoglobin 14.9 gm/dl (12.5-18.0); Lymphocyte (Absolute #) 1.51 (1.0-4.6); Lymphocytes % 22.3 % (24.0-44.0); Mean Cell Volume 96.1 fl (78-100); Mean Corpuscular Hemoglobin 31.9 pg (26-32); Mean Corpuscular Hgb Concent. 33.2 g/dl (32-36); Monocyte (Absolute #) 0.51 (0.0-1.3); Monocytes % 7.5 % (0.0-12.0); Neutrophil % 66.8 % (36.0-66.0); Platelet Count 179 K/mm3 (150-450); Red Blood Count 4.67 M/mm3 (4.1-5.6); Red Cell Distribution Width 13.9 % (11.5-14.0); White Blood Count 6.8 K/mm3 (4.0-10.5)
[2019-08-01 11:01] LABS: ALBUMIN 3.7 g/dL (3.5-5.0); ALKALINE PHOSPHATASE 136 U/L (38-126); ANION GAP 10.5 MEQ/L (5-15); BLOOD UREA NITROGEN 9 mg/dL (9-20); CHLORIDE 109 mmol/L (98-107); Calcium 8.6 mg/dL (8.4-10.2); Carbon Dioxide 25 mmol/L (22-30); Creatinine 1 0.78 mg/dL (0.66-1.25); Glucose 96 mg/dL (74-106); Potassium 3.8 mmol/L (3.5-5.1); SGOT/AST 21 U/L (17-59); SGPT/ALT 21 U/L (0-50); SODIUM 141 mmol/L (137-145); Total Protein 6.9 g/dL (6.3-8.2)
--- NOTE | 2019-08-01 11:16 | ERPHSYRPT ---
- History of Present Illness Time Seen by Provider: 08/01/19 09:58 Source: patient Exam Limitations: no limitations Patient Subjective Stated Complaint: Woke up with a migraine this am. Reports taking imitrex in the past but out of his prescription today. Pain described as sharp at the right temporal region. Pt reports known history of migraines with an aura. Reports pain rated 7/10 located behind the right eye and the right temporal region. Denies dizziness, numbness/tingling. No noted focal neurological deficits. Denies visual/auditory disturbances. Symmetrical chest expansion. Lungs clear with adequate airflow. Abdomen soft non-distended. Denies nausea/vomiting/diarrhea. Triage Nursing Assessment: Pt presents alert et oriented x3. Pt ambulatory without assistance. Reports history of migraine Physician History: Patient is here for migraine. Has a history of a migraine. This feels like his normal migraines. Patient has no falls or trauma. No signs or symptoms of meningitis. No fever, nuchal rigidity. No known sick exposures. Patient states that he woke up with a migraine this morning. Patient does have a known kidney stone. Therefore, this could be contributing to his migraine triggering. He is also out of his home Imitrex. Therefore, has not taken anything for his migraine. Location: right temporal pain Quality: sharp Radiation: none Severity: moderate Duration: this AM Timing: gradual, not thunder clap Modifying factors/associated signs and symptoms: out of home imitrix Allergies/Adverse Reactions: No Known Drug Allergies Allergy (Verified 08/01/19 10:01) Home Medications: Levothyroxine Sodium 100 mcg DAILY 01/18/19 [History] PANTOPRAZOLE 40 mg Tablet [Protonix 40MG Tablet] 40 mg PO DAILY 01/18/19 [ History] Bupropion HCl Xl 150 mg [Wellbutrin XL 150 MG] 150 mg PO DAILY 07/15/19 [ History] SUMAtriptan succinate [Imitrex 50 mg] 100 mg PO UD PRN 07/15/19 [History] Sertraline HCl 50 mg [Zoloft 50 mg Tablet] 50 mg PO DAILY 07/15/19 [History] Aspirin EC 81 mg [Ecotrin 81 mg] 81 mg PO DAILY 07/31/19 [History] Atorvastatin Calcium [Lipitor] 40 mg PO DAILY 07/31/19 [History] Clopidogrel Bisulfate [Clopidogrel] 75 mg PO DAILY 07/31/19 [History] Hx Tetanus, Diphtheria Vaccination/Date Given: Yes Hx Influenza Vaccination/Date Given: Yes Hx Pneumococcal Vaccination/Date Given: No Immunizations Up to Date: Yes Travel Risk - International Travel Have you traveled outside of the country in past 3 weeks: No Have you or anyone close to you been diagnosed with or: No Do your reside in a community with a known COVID-19 case?: Yes If Yes where:: [facility] - Coronavirus Screening Has patient experienced Coronavirus symptoms: No - Review of Systems Constitutional: No Fever, No Chills Eyes: No Symptoms Ears, Nose, & Throat: No Symptoms Respiratory: No Cough, No Dyspnea Cardiac: No Chest Pain, No Edema, No Syncope Abdominal/Gastrointestinal: No Abdominal Pain, No Nausea, No Vomiting, No Diarrhea Genitourinary Symptoms: No Dysuria Musculoskeletal: No Back Pain, No Neck Pain Skin: No Rash Neurological: Headache, No Dizziness, No Focal Weakness, No Sensory Changes Psychological: No Symptoms Endocrine: No Symptoms All Other Systems: Reviewed and Negative - Past Medical History Pertinent Past Medical History: Yes Neurological History: No Pertinent History, Migraines ENT History: No Pertinent History Cardiac History: No Pertinent History Respiratory History: No Pertinent History Endocrine Medical History: Hypothyroidism Musculoskeletal History: No Pertinent History GI Medical History: GERD History: Other Psycho-Social History: No Pertinent History Male Reproductive Disorders: No Pertinent History Other Medical History: spontaneous pneumo, appendectomy, r knee surgery x2, ulnar nerve release surgery, kidney stone - Past Surgical History Past Surgical History: Yes Neuro Surgical History: No Pertinent History Cardiac: No Pertinent History Respiratory: Other Gastrointestinal: Appendectomy Genitourinary: No Pertinent History Musculoskeletal: Orthopedic Surgery Male Surgical History: No Pertinent History Other Surgical History: right knee x2, elbow surgery - Social History Smoking Status: Never smoker Exposure to second hand smoke: No Drug Use: none Patient Lives Alone: No (two children, fiance, and mother in-law) - Nursing Vital Signs Nursing Vital Signs: Initial Vital Signs Temperature 98.6 F 08/01/19 09:51 Pulse Rate 63 08/01/19 09:51 Respiratory Rate 16 08/01/19 09:51 Blood Pressure 152/93 08/01/19 09:51 O2 Sat by Pulse Oximetry 97 08/01/19 09:51 Pain Scale Pain Intensity 5 - Physical Exam General Appearance: no apparent distress Eye Exam: PERRL/EOMI Ears, Nose, Throat Exam: normal ENT inspection, moist mucous membranes Neck Exam: normal inspection, supple, full range of motion, No meningismus Respiratory Exam: normal breath sounds, lungs clear Cardiovascular Exam: regular rate/rhythm, normal heart sounds Gastrointestinal/Abdominal Exam: soft, No tenderness, No distention Back Exam: normal inspection, normal range of motion 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, 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 Muscle bulk and tone are normal. Strength is full bilaterally. Reflexes: Reflexes are 2+ and symmetric at the biceps, triceps, knees, and ankles. Plantar responses are flexor. Sensory: Light touch sense are intact in bilateral upper and lower extremities. There is no sign of neglect. Coordination: Rapid alternating movements are intact. There is no dysmetria on [id number] and [id number]. There are no abnormal or extraneous movements. Romberg is absent. Gait/Stance: Posture is normal. Gait is steady with normal steps, base, arm swing, and turning. Heel and toe walking are normal. Tandem gait is normal. No obvious deformity, sensation intact, 2+ capillary refill, 2 point tactile discrimination intact. 5 out of 5 strength. Full range of motion without pain. Compartments are soft, nontender. Overlying skin shows no tenting, bruising, ecchymosis. - Course Nursing assessment & vital signs reviewed: Yes Ordered Tests: Active Orders 24 hr Category Date Time Status IV Insertion STAT Care 08/01/19 10:18 Active CBC W DIFF Stat Lab 08/01/19 10:45 Completed CMP Stat Lab 08/01/19 10:45 Completed Medication Summary Generic Name Dose Route Start Last Admin Trade Name Freq PRN Reason Stop Dose Admin Sodium Chloride 1,000 mls @ 999 mls/hr 08/01/19 10:18 08/01/19 10:34 Sodium Chloride 0.9% 1000 Ml IV 08/01/19 11:18 999 mls/hr .Q1H1M STA Administration Discontinued Medications Generic Name Dose Route Start Last Admin Trade Name Giovaniq PRN Reason Stop Dose Admin Diphenhydramine HCl 25 mg 08/01/19 10:18 08/01/19 10:35 Benadryl 50 Mg/Ml IV 08/01/19 10:19 25 mg STAT ONE Administration Diphenhydramine HCl Confirm 08/01/19 10:22 Benadryl 50 Mg/Ml Administered 08/01/19 10:23 Dose 50 mg .ROUTE .STK-MED ONE Sodium Chloride Confirm 08/01/19 10:25 Sodium Chloride 0.9% 1000 Ml Administered 08/01/19 10:26 Dose 1,000 mls @ ud .ROUTE .STK-MED ONE Ketorolac Tromethamine 30 mg 08/01/19 10:18 08/01/19 10:36 Toradol 30 Mg Injection IV 08/01/19 10:19 30 mg STAT ONE Administration Ketorolac Tromethamine Confirm 08/01/19 10:23 Toradol 30 Mg Injection Administered 08/01/19 10:24 Dose 30 mg .ROUTE .STK-MED ONE Methylprednisolone Sodium Succinate 125 mg 08/01/19 10:18 08/01/19 10:38 Solu-Medrol 125 Mg IV 08/01/19 10:19 125 mg STAT ONE Administration Methylprednisolone Sodium Succinate Confirm 08/01/19 10:23 Solu-Medrol 125 Mg Administered 08/01/19 10:24 Dose 125 mg .ROUTE .STK-MED ONE Metoclopramide HCl 10 mg 08/01/19 10:18 08/01/19 10:38 Reglan 10 Mg/2 Ml IV 08/01/19 10:19 10 mg STAT ONE Administration Metoclopramide HCl Confirm 08/01/19 10:23 Reglan 10 Mg/2 Ml Administered 08/01/19 10:24 Dose 10 mg .ROUTE .STK-MED ONE Lab/Rad Data: Laboratory Result Diagrams 08/01/19 10:45 08/01/19 10:45 Laboratory Results 08/01/19 08/01/19 Range/Units 10:45 10:45 WBC 6.8 (4.0-10.5) K/mm3 RBC 4.67 (4.1-5.6) M/mm3 Hgb 14.9 (12.5-18.0) gm/dl Hct 44.9 (42-50) % MCV 96.1 (78-100) fl MCH 31.9 (26-32) pg MCHC 33.2 (32-36) g/dl RDW 13.9 (11.5-14.0) % Plt Count 179 (150-450) K/mm3 MPV 10.0 (7.5-11.0) fl Gran % 66.8 H (36.0-66.0) % Eos # (Auto) 0.20 (0-0.5) Absolute Lymphs (auto) 1.51 (1.0-4.6) Absolute Monos (auto) 0.51 (0.0-1.3) Lymphocytes % 22.3 L (24.0-44.0) % Monocytes % 7.5 (0.0-12.0) % Eosinophils % 3.0 (0.00-5.0) % Basophils % 0.4 (0.0-0.4) % Absolute Granulocytes 4.51 (1.4-6.9) Basophils # 0.03 (0-0.4) Sodium 141 (137-145) mmol/L Potassium 3.8 (3.5-5.1) mmol/L Chloride 109 H (98-107) mmol/L Carbon Dioxide 25 (22-30) mmol/L Anion Gap 10.5 (5-15) MEQ/L BUN 9 (9-20) mg/dL Creatinine 0.78 (0.66-1.25) mg/dL Estimated GFR > 60.0 ML/MIN Glucose 96 (74-106) mg/dL Calcium 8.6 (8.4-10.2) mg/dL Total Bilirubin 1.00 (0.2-1.3) mg/dL AST 21 (17-59) U/L ALT 21 (0-50) U/L Alkaline Phosphatase 136 H (38-126) U/L Serum Total Protein 6.9 (6.3-8.2) g/dL Albumin 3.7 (3.5-5.0) g/dL - Progress Progress: improved Air Movement: good Progress Note: 08/01/19 11:14 Patient given migraine cocktail, fluids. Basic labs obtained. No leukocytosis or other signs of infection. At this point time, patient does feel improved. Will discharge patient home. He will need close follow-up with his PCP. Return here for new or changing symptoms. Patient does have a urology appointment at 3 PM. We encouraged the patient to keep this appointment. Blood Culture(s) Obtained: No Antibiotics given: No Counseled pt/family regarding: lab results, diagnosis, need for follow-up - Departure Departure Disposition: Home Clinical Impression: Migraine Condition: Stable Critical Care Time: No Referrals: MARY BURGESS [Primary Care Provider] - Instructions: Migraines in Adults
[2019-08-01 11:23] VITALS: BP 133/83; PULSE 68; O2SAT 96
== END 2019-08-01 11:29 | disposition home or self-care (01) ==
LOC: ED 09:51
DX: G43.909 Migraine, unspecified, not intractable, without status migrainosus (principal); Z79.899 Other long term (current) drug therapy; E03.9 Hypothyroidism, unspecified; K21.9 Gastro-esophageal reflux disease without esophagitis
CPT/HCPCS: 36000; 36415; 80053; 85025; 96374; 96375; 99284; J1200; J1885; J2930

== ENCOUNTER 2019-12-13 09:19 | Emergency (ER) | payer OTHER ==
[2019-12-13] MEDS ORDERED: TYLENOL 325 MG PO ONE (09:40)
[2019-12-13] MEDS ORDERED: BENADRYL 50 MG/ML IV ONE (09:40)
[2019-12-13] MEDS ORDERED: TORAdol 30 mg Injection IV ONE (09:40)
[2019-12-13] MEDS ORDERED: Sodium Chloride 0.9% 1000 ML 1,000 ML IV STA (09:40)
[2019-12-13] MEDS ORDERED: Zofran 4 MG/2 ML VIAL IV ONE (09:40)
[2019-12-13] MEDS ORDERED: Reglan 10 MG/2 ML IV ONE (09:40)
--- NOTE | 2019-12-13 09:42 | ERPHSYRPT ---
- History of Present Illness Time Seen by Provider: 12/13/19 09:22 Source: patient Patient Subjective Stated Complaint: migraine/vomiting Triage Nursing Assessment: pt to ED c/o migraine and vomiting onset 0100 this am. hx migraines 2-3 per month with these sx. used to take imetrex but is out currently. denies COVID exposure or other sx. rates 10/10 pain in head, no bowel or urinary issues currently. heart soudns clear, lungs clear and equal bilat. Physician History: 44 years old male with history of migraine presented in the ER with sudden onset right-sided headache waking him up from sleep around middle of the night associated with nausea and multiple episodes of nonprojectile, nonbilious vomiting, last episode 4 hours ago. Patient reports sharp pain right sided, aggravated with light movements, noise and partially relieved with sitting in a dark room. Patient reports headache similar to previous episodes usually goes away after taking Imitrex but patient is out of it. Denies any fever chills or neck pain. No difficulty movements of neck. Does not think this is the worst headache of his life. Denies any sick contact Timing/Duration: today, sudden, worse Quality: sharpness, stabbing Head Pain Location: frontal, occipital, parietal Severity of Pain-Max: severe Severity of Pain-Current: moderate Recent Head Trauma: no recent headache/trauma, frequent headaches Modifying Factors: Improves With: exposure to light, movement, noise, position Associated Symptoms: nausea/vomiting, No confusion, No dizziness, No fever/chills, No light-headedness, No nasal congestion, No numbness in legs/feet, No sweating, No scotoma, No seizures, No sinus infection, No sensitive to light, No speech problems, No stiff neck, No trouble walking, No vision changes, No visual disturbance, No weakness Previous symptoms: same symptoms as today Allergies/Adverse Reactions: No Known Drug Allergies Allergy (Verified 12/13/19 09:30) Home Medications: Levothyroxine Sodium 100 mcg DAILY 01/18/19 [History] PANTOPRAZOLE 40 mg Tablet [Protonix 40MG Tablet] 40 mg PO DAILY 01/18/19 [History] Bupropion HCl Xl 150 mg [Wellbutrin XL 150 MG] 150 mg PO DAILY 04/07/20 [History] SUMAtriptan succinate [Imitrex 50 mg] 100 mg PO UD PRN 07/15/19 [History] Sertraline HCl 50 mg [Zoloft 50 mg Tablet] 50 mg PO DAILY 07/15/19 [History] Aspirin EC 81 mg [Ecotrin 81 mg] 81 mg PO DAILY 07/31/19 [History] Atorvastatin Calcium [Lipitor] 40 mg PO DAILY 07/31/19 [History] Clopidogrel Bisulfate [Clopidogrel] 75 mg PO DAILY 07/31/19 [History] Hx Tetanus, Diphtheria Vaccination/Date Given: Yes Hx Influenza Vaccination/Date Given: Yes Hx Pneumococcal Vaccination/Date Given: No Immunizations Up to Date: Yes Travel Risk - International Travel Have you traveled outside of the country in past 3 weeks: No - Coronavirus Screening Are you exhibiting any of the following symptoms?: Yes Symptoms: Vomiting/Diarrhea, Headaches/Body Aches/Fatigue Close contact with a COVID-19 positive Pt in past 14-21 Days: No - Review of Systems Constitutional: No Symptoms Eyes: No Symptoms Ears, Nose, & Throat: No Symptoms Respiratory: No Symptoms Cardiac: No Symptoms Abdominal/Gastrointestinal: No Symptoms Genitourinary Symptoms: No Symptoms Musculoskeletal: No Symptoms Skin: No Symptoms Neurological: Headache Psychological: No Symptoms Endocrine: No Symptoms Hematologic/Lymphatic: No Symptoms Immunological/Allergic: No Symptoms - Past Medical History Pertinent Past Medical History: Yes Neurological History: No Pertinent History, Migraines ENT History: No Pertinent History Cardiac History: No Pertinent History Respiratory History: No Pertinent History Endocrine Medical History: Hypothyroidism Musculoskeletal History: No Pertinent History GI Medical History: GERD History: Other Psycho-Social History: No Pertinent History Male Reproductive Disorders: No Pertinent History Other Medical History: spontaneous pneumo, appendectomy, r knee surgery x2, ulnar nerve release surgery, kidney stone. vertigo - Past Surgical History Past Surgical History: Yes Neuro Surgical History: No Pertinent History Cardiac: No Pertinent History Respiratory: Other Gastrointestinal: Appendectomy Genitourinary: No Pertinent History Musculoskeletal: Orthopedic Surgery Male Surgical History: No Pertinent History Other Surgical History: right knee x2, elbow surgery - Social History Smoking Status: Never smoker Exposure to second hand smoke: No Drug Use: none Patient Lives Alone: No (two children, fiance, and mother in-law) - Nursing Vital Signs Nursing Vital Signs: Initial Vital Signs Temperature 97.7 F 12/13/19 09:23 Pulse Rate 73 12/13/19 09:23 Respiratory Rate 18 12/13/19 09:23 Blood Pressure 146/85 12/13/19 09:23 O2 Sat by Pulse Oximetry 97 12/13/19 09:23 Pain Scale Pain Intensity 7 - Physical Exam General Appearance: no apparent distress, alert, anxiety Eye Exam: PERRL/EOMI, eyes nml inspection Ears, Nose, Throat Exam: normal ENT inspection, TMs normal, pharynx normal Neck Exam: normal inspection, non-tender, supple, full range of motion Respiratory Exam: normal breath sounds, lungs clear, respiratory distress Cardiovascular Exam: regular rate/rhythm, normal heart sounds, normal peripheral pulses Gastrointestinal/Abdominal Exam: soft, normal bowel sounds, No tenderness Extremity Exam: normal inspection, normal range of motion 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, 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, 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: 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 hearing, normal speech, PERRL Coordination/Gait Exam: normal finger to nose, normal gait, normal cerebellar function Motor/Sensory Exam: no motor deficit, no sensory deficit, no pronator drift Skin Exam: normal color SpO2 Interpretation: normal SpO2: 97 O2 Delivery: Room Air - Course Nursing assessment & vital signs reviewed: Yes Ordered Tests: Active Orders 24 hr Category Date Time Status IV Insertion STAT Care 12/13/19 09:40 Completed Medication Summary Discontinued Medications Generic Name Dose Route Start Last Admin Trade Name Olivia PRN Reason Stop Dose Admin Acetaminophen 975 mg 12/13/19 09:40 12/13/19 09:47 Tylenol 325 Mg PO 12/13/19 09:41 975 mg STAT ONE Administration Acetaminophen Confirm 12/13/19 09:44 Tylenol 325 Mg Administered 12/13/19 09:45 Dose 975 mg .ROUTE .STK-MED ONE Diphenhydramine HCl 25 mg 12/13/19 09:40 12/13/19 09:47 Benadryl 50 Mg/Ml IV 12/13/19 09:41 25 mg STAT ONE Administration Diphenhydramine HCl Confirm 12/13/19 09:44 Benadryl 50 Mg/Ml Administered 12/13/19 09:45 Dose 50 mg .ROUTE .STK-MED ONE Sodium Chloride 1,000 mls @ 999 mls/hr 12/13/19 09:40 12/13/19 10:54 Sodium Chloride 0.9% 1000 Ml IV 12/13/19 10:40 Infused .Q1H1M STA Infusion Sodium Chloride Confirm 12/13/19 09:44 Sodium Chloride 0.9% 1000 Ml Administered 12/13/19 09:45 Dose 1,000 mls @ ud .ROUTE .STK-MED ONE Ketorolac Tromethamine 30 mg 12/13/19 09:40 12/13/19 09:47 Toradol 30 Mg Injection IV 12/13/19 09:41 30 mg STAT ONE Administration Ketorolac Tromethamine Confirm 12/13/19 09:44 Toradol 30 Mg Injection Administered 12/13/19 09:45 Dose 30 mg .ROUTE .STK-MED ONE Metoclopramide HCl 10 mg 12/13/19 09:40 12/13/19 09:47 Reglan 10 Mg/2 Ml IV 12/13/19 09:41 10 mg STAT ONE Administration Metoclopramide HCl Confirm 12/13/19 09:44 Reglan 10 Mg/2 Ml Administered 12/13/19 09:45 Dose 10 mg .ROUTE .STK-MED ONE Morphine Sulfate 4 mg 12/13/19 11:16 12/13/19 11:21 Morphine Sulfate 4 Mg Inj IV 12/13/19 11:17 4 mg STAT ONE Administration Morphine Sulfate Confirm 12/13/19 11:20 Morphine Sulfate 4 Mg Inj Administered 12/13/19 11:21 Dose 4 mg .ROUTE .STK-MED ONE Ondansetron HCl 4 mg 12/13/19 09:40 12/13/19 09:47 Zofran 4 Mg/2 Ml Vial IV 12/13/19 09:41 4 mg STAT ONE Administration Ondansetron HCl Confirm 12/13/19 09:44 Zofran 4 Mg/2 Ml Vial Administered 12/13/19 09:45 Dose 4 mg .ROUTE .STK-MED ONE - Progress Progress: improved Air Movement: good Progress Note: 12/13/19 11:46 Given migraine cocktail, on reevaluation feeling better. Has a nonfocal neuro exam throughout stay in the ER. No nuchal rigidity or signs of meningismus. Do not think he needs imaging or any other work-up. I believe patient has routine migraine headache and will give prescription of Imitrex to go home and recommended outpatient follow-up. Discussed signs symptoms of worsening needing return to ER which he seems understanding. Blood Culture(s) Obtained: No Antibiotics given: No Counseled pt/family regarding: diagnosis, need for follow-up - Departure Departure Disposition: Home Clinical Impression: Migraine headache Qualifiers: Migraine type: without aura Status migrainosus presence: without status migrainosus Intractability: not intractable Qualified Code(s): G43.009 - Migraine without aura, not intractable, without status migrainosus Condition: Stable Critical Care Time: No Referrals: MARY BURGESS [Primary Care Provider] - Follow Up with PCP/3 days Instructions: Migraines in Adults Additional Instructions: Follow-up with your primary care physician for reevaluation. Take Imitrex as needed. Return to ER for worsening headache, blurry vision, numbness tingling weakness etc. Prescriptions: SUMAtriptan succinate [Imitrex 50 mg] 50 mg PO [id number] PRN #10 tablet PRN Reason: Pain
[2019-12-13] MEDS ORDERED: TORAdol 30 mg Injection ONE (09:44)
[2019-12-13] MEDS ORDERED: Reglan 10 MG/2 ML ONE (09:44)
[2019-12-13] MEDS ORDERED: Sodium Chloride 0.9% 1000 ML 1,000 ML ONE (09:44)
[2019-12-13] MEDS ORDERED: TYLENOL 325 MG ONE (09:44)
[2019-12-13] MEDS ORDERED: Zofran 4 MG/2 ML VIAL ONE (09:44)
[2019-12-13] MEDS ORDERED: BENADRYL 50 MG/ML ONE (09:44)
[2019-12-13] MEDS ORDERED: MORPHINE SULFATE 4 MG INJ IV ONE (11:16)
[2019-12-13] MEDS ORDERED: MORPHINE SULFATE 4 MG INJ ONE (11:20)
[2019-12-13 12:10] VITALS: BP 122/80; PULSE 66
[2019-12-13 12:51] VITALS: O2SAT 97
== END 2019-12-13 12:10 | disposition home or self-care (01) ==
LOC: ED 09:19
DX: G43.009 Migraine without aura, not intractable, without status migrainosus (principal)
CPT/HCPCS: 96360; 96374; 96375; 99284; J1200; J1885; J2270; J2405; A9270-GY

== ENCOUNTER 2020-04-08 11:57 | Emergency (ER) | payer OTHER ==
[2020-04-08] MEDS ORDERED: TYLENOL 325 MG PO ONE (12:29)
[2020-04-08] MEDS ORDERED: MORPHINE SULFATE 4 MG INJ IV ONE (12:29)
[2020-04-08] MEDS ORDERED: Sodium Chloride 0.9% 1000 ML 1,000 ML IV STA (12:29)
[2020-04-08] MEDS ORDERED: Zofran 4 MG/2 ML VIAL IV ONE (12:29)
[2020-04-08] MEDS ORDERED: Zofran 4 MG/2 ML VIAL ONE (12:36)
[2020-04-08] MEDS ORDERED: Sodium Chloride 0.9% 1000 ML 1,000 ML ONE (12:37)
[2020-04-08] MEDS ORDERED: TYLENOL 325 MG ONE (12:37)
[2020-04-08] MEDS ORDERED: MORPHINE SULFATE 4 MG INJ ONE (12:37)
[2020-04-08 12:39] LABS: Absolute Neutrophil Ct (ANC) 5.33 (1.4-6.9); BASOPHIL % 0.3 % (0.0-0.4); Basophil (Absolute #) 0.02 (0-0.4); Eosinophil % 2.2 % (0.00-5.0); Eosinophil (Absolute #) 0.15 (0-0.5); Hematocrit 47.3 % (42-50); Hemoglobin 15.6 gm/dl (12.5-18.0); Lymphocyte (Absolute #) 0.58 (1.0-4.6); Lymphocytes % 8.5 % (24.0-44.0); Mean Cell Volume 94.2 fl (78-100); Mean Corpuscular Hemoglobin 31.1 pg (26-32); Mean Platelet Volume 9.9 fl (7.5-11.0); Monocyte (Absolute #) 0.76 (0.0-1.3); Monocytes % 11.1 % (0.0-12.0); Neutrophil % 77.9 % (36.0-66.0); Platelet Count 180 K/mm3 (150-450); Red Blood Count 5.02 M/mm3 (4.1-5.6); Red Cell Distribution Width 14.9 % (11.5-14.0); White Blood Count 6.8 K/mm3 (4.0-10.5)
[2020-04-08 12:43] LABS: Appearance CLEAR (CLEAR); Bilirubin NEGATIVE (NEGATIVE); Blood NEGATIVE Ery/ul (0-5); Glucose NEGATIVE (NEGATIVE); Ketones NEGATIVE (NEGATIVE); Leukocyte Esterase NEGATIVE (NEGATIVE); Nitrite NEGATIVE (NEGATIVE); Protein,Urine Dip NEGATIVE (Negative); Specific Gravity 1.005 (1.005-1.025); Urobilinogen NEGATIVE mg/dL (0-1)
[2020-04-08 12:45] LABS: ALBUMIN 4.3 g/dL (3.5-5.0); ALKALINE PHOSPHATASE 119 U/L (38-126); ANION GAP 9.3 MEQ/L (5-15); BLOOD UREA NITROGEN 8 mg/dL (9-20); CHLORIDE 105 mmol/L (98-107); Calcium 8.8 mg/dL (8.4-10.2); Carbon Dioxide 27 mmol/L (22-30); Creatinine 1 0.86 mg/dL (0.66-1.25); EST GLOMERULAR FILTRATION RATE > 60.0 ML/MIN; Glucose 96 mg/dL (74-106); LIPASE 61 U/L (23-300); SGOT/AST 26 U/L (17-59); SGPT/ALT 28 U/L (0-50); SODIUM 137 mmol/L (137-145); Total Protein 7.5 g/dL (6.3-8.2)
--- NOTE | 2020-04-08 13:20 | XRAY ---
Indication: Abdomen pain and diarrhea. Comparison: Chest exam May 13, 2019. 2 view abdomen nonacute and nonobstructed. At least 2 CT proven right renal micro-calculi, a few bilateral pelvic phleboliths, and benign prostate calcifications. Remaining solid organs and osseous structures are unremarkable. Single AP chest demonstrates new subtle left base infiltrate versus atelectasis. Remaining heart, right lung, and bony thorax normal. Impression: 1. Right renal micro-calculi detailed on CT abdomen/pelvis July 31, 2019. 2. New left base infiltrate versus atelectasis.
[2020-04-08] MEDS ORDERED: Levofloxacin 500 MG Tablet PO ONE (13:59)
[2020-04-08] MEDS ORDERED: Levofloxacin 500 MG Tablet ONE (14:02)
--- NOTE | 2020-04-08 14:06 | ERPHSYRPT ---
- History of Present Illness Time Seen by Provider: 04/08/20 12:00 Source: patient Exam Limitations: no limitations Patient Subjective Stated Complaint: Diarrhea Triage Nursing Assessment: Patient ambulated back to ED and transferred self to bed. Patient A+O X3. Patient's skin pink, warm and dry. Patient complains of diarrhea, body aches, cough and fatigue for the past two days. Patient complains of pain all over body 7/10 costant aching. Lungs clear a/p regan. Abdomen soft and round with BS X 4. Physician History: 45 years old male presented in the ER with flulike symptoms for the last 2 days. Patient report generalized body ache, cough congestion, abdominal pain and loose stools for the last 3 days. Patient reports using [id number] medication with no significant relief. Denies any fever or chills but feels fatigued tired and no energy to do his routine activities. Also reports having abdominal cramping with episodes of diarrhea. No known positive sick contact Timing/Duration: today (3), gradual onset, worse Cough Quality/Degree: moderate, dry cough Possible Cause: no prior episodes Modifying Factors: Worsens With: coughing Associated Symptoms: chest pain/soreness, cough, headache, muscle aches, nasal congestion, No fever Allergies/Adverse Reactions: No Known Drug Allergies Allergy (Verified 04/08/20 12:10) Home Medications: Levothyroxine Sodium 100 mcg DAILY 01/18/19 [History] PANTOPRAZOLE 40 mg Tablet [Protonix 40MG Tablet] 40 mg PO DAILY 01/18/19 [History] Bupropion HCl Xl 150 mg [Wellbutrin XL 150 MG] 150 mg PO DAILY 07/15/19 [History] Sertraline HCl 50 mg [Zoloft 50 mg Tablet] 50 mg PO DAILY 07/15/19 [History] Aspirin EC 81 mg [Ecotrin 81 mg] 81 mg PO DAILY 07/31/19 [History] Atorvastatin Calcium [Lipitor] 40 mg PO DAILY 07/31/19 [History] Clopidogrel Bisulfate [Clopidogrel] 75 mg PO DAILY 07/31/19 [History] Hx Tetanus, Diphtheria Vaccination/Date Given: Yes Hx Influenza Vaccination/Date Given: No Hx Pneumococcal Vaccination/Date Given: No Immunizations Up to Date: Yes Travel Risk - International Travel Have you traveled outside of the country in past 3 weeks: No - Coronavirus Screening Are you exhibiting any of the following symptoms?: Yes Symptoms: Cough: New Onset, Shortness of Breath, Vomiting/Diarrhea, Headaches/Body Aches/Fatigue Close contact with a COVID-19 positive Pt in past 14-21 Days: No - Review of Systems Constitutional: Fatigue, Malaise, Weakness Eyes: No Symptoms Ears, Nose, & Throat: Nose Congestion Respiratory: Cough, Dyspnea Cardiac: Chest Pain Abdominal/Gastrointestinal: Abdominal Pain, Nausea, Diarrhea Genitourinary Symptoms: No Symptoms Musculoskeletal: Myalgias Skin: No Symptoms Neurological: Headache Psychological: No Symptoms Endocrine: No Symptoms Hematologic/Lymphatic: No Symptoms Immunological/Allergic: No Symptoms - Past Medical History Pertinent Past Medical History: Yes Neurological History: No Pertinent History, Migraines ENT History: No Pertinent History Cardiac History: No Pertinent History Respiratory History: No Pertinent History Endocrine Medical History: Hypothyroidism Musculoskeletal History: No Pertinent History GI Medical History: GERD History: Other Psycho-Social History: No Pertinent History Male Reproductive Disorders: No Pertinent History Other Medical History: spontaneous pneumo, appendectomy, r knee surgery x2, ulnar nerve release surgery, kidney stone. vertigo - Past Surgical History Past Surgical History: Yes Neuro Surgical History: No Pertinent History Cardiac: No Pertinent History Respiratory: Other Gastrointestinal: Appendectomy Genitourinary: No Pertinent History Musculoskeletal: Orthopedic Surgery Male Surgical History: No Pertinent History Other Surgical History: right knee x2, elbow surgery - Social History Smoking Status: Never smoker Exposure to second hand smoke: No Drug Use: none Patient Lives Alone: Yes - Nursing Vital Signs Nursing Vital Signs: Initial Vital Signs Temperature 98.4 F 04/08/20 12:13 Pulse Rate 69 04/08/20 12:13 Respiratory Rate 18 04/08/20 12:13 Blood Pressure 131/90 04/08/20 12:13 O2 Sat by Pulse Oximetry 98 04/08/20 12:13 Pain Scale Pain Intensity 0 - Physical Exam General Appearance: no apparent distress Eye Exam: PERRL/EOMI, eyes nml inspection Ears, Nose, Throat Exam: pharyngeal erythema Neck Exam: normal inspection, non-tender, supple, full range of motion Respiratory Exam: normal breath sounds, lungs clear Cardiovascular Exam: regular rate/rhythm, normal heart sounds Gastrointestinal/Abdomen Exam: soft, normal bowel sounds, No tenderness, No guarding Back Exam: normal inspection, normal range of motion Extremity Exam: normal inspection, normal range of motion Neurologic Exam: alert, 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, 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, 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 Skin Exam: normal color SpO2 Interpretation: normal SpO2: 94 O2 Delivery: Room Air Ordered Tests: Active Orders 24 hr Category Date Time Status IV Insertion STAT Care 04/08/20 12:29 Active OBSTR/ACUTE ABDOMEN SERIES Stat Exams 04/08/20 12:30 Completed BLOOD CULTURE Stat Lab 04/08/20 13:59 Ordered CBC W DIFF Stat Lab 04/08/20 12:22 Completed CMP Stat Lab 04/08/20 12:22 Completed LIPASE Stat Lab 04/08/20 12:22 Completed Lactic Acid Stat Lab 04/08/20 12:44 Completed UA W/RFX UR CULTURE Stat Lab 04/08/20 12:37 Completed Medication Summary Discontinued Medications Generic Name Dose Route Start Last Admin Trade Name Freq PRN Reason Stop Dose Admin Acetaminophen 975 mg 04/08/20 12:29 04/08/20 12:38 Tylenol 325 Mg PO 04/08/20 12:30 975 mg STAT ONE Administration Acetaminophen Confirm 04/08/20 12:37 Tylenol 325 Mg Administered 04/08/20 12:38 Dose 975 mg .ROUTE .STK-MED ONE Sodium Chloride 1,000 mls @ 999 mls/hr 04/08/20 12:29 04/08/20 12:38 Sodium Chloride 0.9% 1000 Ml IV 04/08/20 13:29 999 mls/hr .Q1H1M STA Administration Sodium Chloride Confirm 04/08/20 12:37 Sodium Chloride 0.9% 1000 Ml Administered 04/08/20 12:38 Dose 1,000 mls @ ud .ROUTE .STK-MED ONE Morphine Sulfate 4 mg 04/08/20 12:29 04/08/20 12:38 Morphine Sulfate 4 Mg Inj IV 04/08/20 12:30 4 mg STAT ONE Administration Morphine Sulfate Confirm 04/08/20 12:37 Morphine Sulfate 4 Mg Inj Administered 04/08/20 12:38 Dose 4 mg .ROUTE .STK-MED ONE Ondansetron HCl 4 mg 04/08/20 12:29 04/08/20 12:38 Zofran 4 Mg/2 Ml Vial IV 12/31/20 12:30 4 mg STAT ONE Administration Ondansetron HCl Confirm 04/08/20 12:36 Zofran 4 Mg/2 Ml Vial Administered 04/08/20 12:37 Dose 4 mg .ROUTE .STK-MED ONE Lab/Rad Data: Laboratory Result Diagrams 04/08/20 12:22 04/08/20 12:22 Laboratory Results 04/08/20 04/08/20 04/08/20 Range/Units 12:44 12:37 12:22 WBC (4.0-10.5) K/mm3 RBC (4.1-5.6) M/mm3 Hgb (12.5-18.0) gm/dl Hct (42-50) % MCV (78-100) fl MCH (26-32) pg MCHC (32-36) g/dl RDW (11.5-14.0) % Plt Count (150-450) K/mm3 MPV (7.5-11.0) fl Gran % (36.0-66.0) % Eos # (Auto) (0-0.5) Absolute Lymphs (auto) (1.0-4.6) Absolute Monos (auto) (0.0-1.3) Lymphocytes % (24.0-44.0) % Monocytes % (0.0-12.0) % Eosinophils % (0.00-5.0) % Basophils % (0.0-0.4) % Absolute Granulocytes (1.4-6.9) Basophils # (0-0.4) Sodium 137 (137-145) mmol/L Potassium 4.0 (3.5-5.1) mmol/L Chloride 105 (98-107) mmol/L Carbon Dioxide 27 (22-30) mmol/L Anion Gap 9.3 (5-15) MEQ/L BUN 8 L (9-20) mg/dL Creatinine 0.86 (0.66-1.25) mg/dL Estimated GFR > 60.0 ML/MIN Glucose 96 (74-106) mg/dL Lactic Acid 1.0 (0.4-2.0) Calcium 8.8 (8.4-10.2) mg/dL Total Bilirubin 0.60 (0.2-1.3) mg/dL AST 26 (17-59) U/L ALT 28 (0-50) U/L Alkaline Phosphatase 119 (38-126) U/L Serum Total Protein 7.5 (6.3-8.2) g/dL Albumin 4.3 (3.5-5.0) g/dL Lipase 61 (23-300) U/L Urine Color STRAW (YELLOW) Urine Appearance CLEAR (CLEAR) Urine pH 7.0 (5-6) Ur Specific [place] 1.005 (1.005-1.025) Urine Protein NEGATIVE (Negative) Urine Ketones NEGATIVE (NEGATIVE) Urine Blood NEGATIVE (0-5) Aroldo/ul Urine Nitrite NEGATIVE (NEGATIVE) Urine Bilirubin NEGATIVE (NEGATIVE) Urine Urobilinogen NEGATIVE (0-1) mg/dL Ur Leukocyte Esterase NEGATIVE (NEGATIVE) Urine WBC (Auto) NONE (0-5) /HPF Urine RBC (Auto) NONE (0-2) /HPF U Epithel Cells (Auto) NONE (FEW) /HPF Urine Bacteria (Auto) NONE (NEGATIVE) /HPF Urine Culture Reflexed NO (NO) Urine Glucose NEGATIVE (NEGATIVE) mg/dL 04/08/20 Range/Units 12:22 WBC 6.8 (4.0-10.5) K/mm3 RBC 5.02 (4.1-5.6) M/mm3 Hgb 15.6 (12.5-18.0) gm/dl Hct 47.3 (42-50) % MCV 94.2 (78-100) fl MCH 31.1 (26-32) pg MCHC 33.0 (32-36) g/dl RDW 14.9 H (11.5-14.0) % Plt Count 180 (150-450) K/mm3 MPV 9.9 (7.5-11.0) fl Gran % 77.9 H (36.0-66.0) % Eos # (Auto) 0.15 (0-0.5) Absolute Lymphs (auto) 0.58 L (1.0-4.6) Absolute Monos (auto) 0.76 (0.0-1.3) Lymphocytes % 8.5 L (24.0-44.0) % Monocytes % 11.1 (0.0-12.0) % Eosinophils % 2.2 (0.00-5.0) % Basophils % 0.3 (0.0-0.4) % Absolute Granulocytes 5.33 (1.4-6.9) Basophils # 0.02 (0-0.4) Sodium (137-145) mmol/L Potassium (3.5-5.1) mmol/L Chloride (98-107) mmol/L Carbon Dioxide (22-30) mmol/L Anion Gap (5-15) MEQ/L BUN (9-20) mg/dL Creatinine (0.66-1.25) mg/dL Estimated GFR ML/MIN Glucose (74-106) mg/dL Lactic Acid (0.4-2.0) Calcium (8.4-10.2) mg/dL Total Bilirubin (0.2-1.3) mg/dL AST (17-59) U/L ALT (0-50) U/L Alkaline Phosphatase (38-126) U/L Serum Total Protein (6.3-8.2) g/dL Albumin (3.5-5.0) g/dL Lipase (23-300) U/L Urine Color (YELLOW) Urine Appearance (CLEAR) Urine pH (5-6) Ur Specific [place] (1.005-1.025) Urine Protein (Negative) Urine Ketones (NEGATIVE) Urine Blood (0-5) Aroldo/ul Urine Nitrite (NEGATIVE) Urine Bilirubin (NEGATIVE) Urine Urobilinogen (0-1) mg/dL Ur Leukocyte Esterase (NEGATIVE) Urine WBC (Auto) (0-5) /HPF Urine RBC (Auto) (0-2) /HPF U Epithel Cells (Auto) (FEW) /HPF Urine Bacteria (Auto) (NEGATIVE) /HPF Urine Culture Reflexed (NO) Urine Glucose (NEGATIVE) mg/dL - Progress Progress: improved, re-examined Air Movement: good Progress Note: 04/08/20 14:06 45 years old is evaluated for flulike symptoms for 3 days. Patient is given fluid bolus along with morphine and Zofran for symptomatic relief. Has normal white count, grossly unremarkable chemistries. Feeling better on reevaluation. Chest x-ray showed left lower lobe airspace disease and no acute abdominal fi ndings. Abdominal exam on repeated evaluation is soft nontender. I believe patient has viral etiology symptoms could be COVID-19. Patient's oxygen saturation 97% on room air without tachypnea or tachycardia. Do not think patient needs to be admitted. Although I would start him on antibiotics for developing pneumonia. Discussed signs symptoms of worsening needing return to ER which he seems understanding. COVID-19 testing is obtained Blood Culture(s) Obtained: Yes Antibiotics given: Yes Counseled pt/family regarding: lab results, diagnosis, need for follow-up, rad results - Departure Departure Disposition: Home Clinical Impression: Viral syndrome Left lower lobe pneumonia Qualifiers: Pneumonia type: due to unspecified organism Qualified Code(s): J18.9 - Pneumonia, unspecified organism Condition: Stable Critical Care Time: No Referrals: MARY BURGESS [Primary Care Provider] - Follow Up with PCP/3 days Instructions: Diarrhea and Travelers' Diarrhea, Adult (DC), Pneumonia, Adult (DC) Additional Instructions: Drink plenty of fluids. Take Tylenol as needed. Follow-up with primary care physician for reevaluation. Follow contact/droplet precautions until your COVID-19 test is back. Return to ER for worsening cough or if develop fever chills, worsening diarrhea/abdominal pain etc. Prescriptions: Levofloxacin [Levaquin 500 MG Tablet] 500 mg PO DAILY #7 tablet Albuterol 8 gm Mdi Hfa [Ventolin Hfa MDI] 8 gm IH Q4H #1 [email or web address]
[2020-04-08 14:29] LABS: Slide Review 1 YES
[2020-04-08 16:13] VITALS: BP 128/72; PULSE 72; O2SAT 97
== END 2020-04-08 16:30 | disposition home or self-care (01) ==
LOC: ED 11:57
DX: J18.9 Pneumonia, unspecified organism (principal); R19.7 Diarrhea, unspecified; R05 Cough; R53.83 Other fatigue; R52 Pain, unspecified; R10.9 Unspecified abdominal pain; E03.9 Hypothyroidism, unspecified; Z79.899 Other long term (current) drug therapy
CPT/HCPCS: 36000; 36415; 74022; 80053; 81001; 83605; 83690; 85025; 87040; 96360; 96374; 96375; 99284; U0003; J2270; J2405; A9270-GY

== ENCOUNTER 2020-04-09 10:38 | Emergency (ER) | payer OTHER ==
[2020-04-09] MEDS ORDERED: BENADRYL 50 MG/ML IM ONE (11:02)
[2020-04-09] MEDS ORDERED: Norflex 60 MG/2 ML IM ONE (11:02)
[2020-04-09] MEDS ORDERED: TORAdol 30 mg Injection IM ONE (11:02)
--- NOTE | 2020-04-09 11:06 | ERPHSYRPT ---
- History of Present Illness Time Seen by Provider: 04/09/20 11:03 Source: patient Exam Limitations: no limitations Patient Subjective Stated Complaint: L back pain Triage Nursing Assessment: pt to ED c/o L back pain that radiates down both legs. 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 pt is guarded and tender to palp of L lower back. reports sharp constant radiating pain to bilat legs. no obvious signs of injury or trauma on initial assessment. ambulatory without assist. A&Ox4. Physician History: 44 year-old male came to the emergency room with complaining of lower back pain that radiates down both legs. 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 pt is guarded and tender to palp of L lower back. reports sharp constant radiating pain to bilat legs. no obvious signs of injury or trauma on initial assessment. ambulatory without assist. Timing/Duration: today Method of Injury: bending, lifting Quality: radiating Back Pain Location: lumbar spine Back Pain Radiation: lower legs Severity of Pain-Max: moderate Severity of Pain-Current: moderate Modifying Factors: Improves With: nothing Associated Symptoms: denies symptoms Allergies/Adverse Reactions: No Known Drug Allergies Allergy (Verified 04/08/20 12:10) Home Medications: Levothyroxine Sodium 100 mcg DAILY 01/18/19 [History] PANTOPRAZOLE 40 mg Tablet [Protonix 40MG Tablet] 40 mg PO DAILY 01/18/19 [History] Bupropion HCl Xl 150 mg [Wellbutrin XL 150 MG] 150 mg PO DAILY 07/15/19 [History] Sertraline HCl 50 mg [Zoloft 50 mg Tablet] 50 mg PO DAILY 07/15/19 [History] Aspirin EC 81 mg [Ecotrin 81 mg] 81 mg PO DAILY 07/31/19 [History] Atorvastatin Calcium [Lipitor] 40 mg PO DAILY 07/31/19 [History] Clopidogrel Bisulfate [Clopidogrel] 75 mg PO DAILY 07/31/19 [History] Hx Tetanus, Diphtheria Vaccination/Date Given: Yes Hx Influenza Vaccination/Date Given: Yes Hx Pneumococcal Vaccination/Date Given: No Immunizations Up to Date: Yes Travel Risk - International Travel Have you traveled outside of the country in past 3 weeks: No - Coronavirus Screening Are you exhibiting any of the following symptoms?: Yes Symptoms: Vomiting/Diarrhea, Headaches/Body Aches/Fatigue Close contact with a COVID-19 positive Pt in past 14-21 Days: No - Review of Systems Constitutional: No Symptoms Eyes: No Symptoms Ears, Nose, & Throat: No Symptoms Respiratory: No Symptoms Cardiac: No Symptoms Abdominal/Gastrointestinal: No Symptoms Genitourinary Symptoms: No Symptoms Musculoskeletal: Back Pain Skin: No Symptoms Neurological: No Symptoms Psychological: No Symptoms - Past Medical History Pertinent Past Medical History: Yes Neurological History: Migraines ENT History: No Pertinent History Cardiac History: No Pertinent History Respiratory History: No Pertinent History Endocrine Medical History: Hypothyroidism Musculoskeletal History: No Pertinent History GI Medical History: GERD History: Other Psycho-Social History: No Pertinent History Male Reproductive Disorders: No Pertinent History Other Medical History: spontaneous pneumo, appendectomy, r knee surgery x2, ulnar nerve release surgery, kidney stone. vertigo - Past Surgical History Past Surgical History: Yes Neuro Surgical History: No Pertinent History Cardiac: No Pertinent History Respiratory: Other Gastrointestinal: Appendectomy Genitourinary: No Pertinent History Musculoskeletal: Orthopedic Surgery Male Surgical History: No Pertinent History Other Surgical History: right knee x2, elbow surgery - Social History Smoking Status: Never smoker Exposure to second hand smoke: No Drug Use: none Patient Lives Alone: Yes - Nursing Vital Signs Nursing Vital Signs: Initial Vital Signs Temperature 98.5 F 04/09/20 10:45 Pulse Rate 79 04/09/20 10:45 Respiratory Rate 18 04/09/20 10:45 Blood Pressure 133/92 04/09/20 10:45 O2 Sat by Pulse Oximetry 98 04/09/20 10:45 Pain Scale Pain Intensity [] 9 Pain Intensity 9 - Physical Exam General Appearance: no apparent distress, alert Eye Exam: PERRL/EOMI, eyes nml inspection Neck Exam: normal inspection, non-tender, supple, full range of motion, No meningismus, No midline tenderness Respiratory Exam: normal breath sounds, lungs clear, No respiratory distress Cardiovascular Exam: regular rate/rhythm, normal heart sounds Gastrointestinal Exam: soft, No tenderness, No mass Back Exam: decreased range of motion, muscle spasm, No CVA tenderness, No vertebral tenderness, No rash, No point tenderness Extremity Exam: normal inspection, normal range of motion, No calf tenderness, No pedal edema Neurologic Exam: alert, 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, 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, 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, normal mood/affect, nml station & gait, sensation nml, No motor deficits Skin Exam: normal color, warm, dry, No rash SpO2: 98 - Course Nursing assessment & vital signs reviewed: Yes - Radiology Exams L-Spine X-ray Interpretation: Reviewed by me, Negative, No Fracture, No Subluxation Ordered Tests: Active Orders 24 hr Category Date Time Status LUMBAR LIMITED (2 OR 3 VIEWS) Stat Exams 04/09/20 11:02 Taken Medication Summary Discontinued Medications Generic Name Dose Route Start Last Admin Trade Name Olivia PRN Reason Stop Dose Admin Diphenhydramine HCl 50 mg 04/09/20 11:02 04/09/20 11:19 Benadryl 50 Mg/Ml IM 04/09/20 11:03 50 mg STAT ONE Administration Diphenhydramine HCl Confirm 04/09/20 11:12 Benadryl 50 Mg/Ml Administered 04/09/20 11:13 Dose 50 mg .ROUTE .STK-MED ONE Ketorolac Tromethamine 60 mg 04/09/20 11:02 04/09/20 11:20 Toradol 30 Mg Injection IM 04/09/20 11:03 60 mg STAT ONE Administration Ketorolac Tromethamine Confirm 04/09/20 11:12 Toradol 30 Mg Injection Administered 04/09/20 11:13 Dose 60 mg .ROUTE .STK-MED ONE Orphenadrine Citrate 60 mg 04/09/20 11:02 04/09/20 11:19 Norflex 60 Mg/2 Ml IM 04/09/20 11:03 60 mg STAT ONE Administration Orphenadrine Citrate Confirm 04/09/20 11:12 Norflex 60 Mg/2 Ml Administered 04/09/20 11:13 Dose 60 mg .ROUTE .STK-MED ONE - Progress Progress: improved, pain not gone completely Counseled pt/family regarding: diagnosis, need for follow-up, rad results - Departure Departure Disposition: Home Clinical Impression: Muscle spasm of back Condition: Stable Critical Care Time: No Referrals: MARY BURGESS [Primary Care Provider] - Instructions: Low Back Pain (DC), Sciatica (DC) Additional Instructions: Discharge/Care Plan BHARATH ESPARZA was seen on 04/09/20 in the Emergency Room. The patient was counseled regarding Diagnosis,Lab results, Imaging studies, need for follow up and when to return to the Emergency Room. Prescriptions given: Discharge Note I have spoken with the patient and/or caregivers. I have explained the patient's condition, diagnosis and treatment plan based on the information available to me at this time. I have answered the patient's and/or caregiver's questions and addressed any concerns. The patient and/or caregivers have as good understanding of the patient's diagnosis, condition and treatment plan as can be expected at this point. The vital signs have been stable. The patient's condition is stable and appropriate for discharge from the emergency department. The patient will pursue further outpatient evaluation with the primary care physician or other designated or consulting physician as outlined in the discharge instructions. The patient and/or caregivers are agreeable to this plan of care and follow-up instructions have been explained in detail. The patient and/or caregivers have received these instruction. The patient/and or caregivers are aware that any significant change in condition or worsening of symptoms should prompt an immediate return to this or the closest emergency department or call 911. BHARATH ESPARZA was seen on 04/09/20 n the Emergency Room. At that time you were treated for an emergent condition, during your visit Laboratory, Radiology and/or other procedures may have been ordered. It is very important that you follow-up with your Primary Care Physician MARY BURGESS within the next 24-48 hours to review your Emergency Room visit and the final results of testing that was ordered. Some test results such as Urine Cultures, Blood Cultures, and other cultures if ordered will not be finalized for 24-48 hours. If you do not have a Primary Care Provider please call the medical records department at [phone] ext [phone] to obtain a copy of your results or you may sign into our patient portal to obtain these results by visiting us @ [email or web address] and completing the following steps: 1. Click on the Patient Portal link 2. Click the Patient Self Enrollment Link to complete the enrollment form and entering your 3. Once the enrollment form is completed you will receive an email with a temporary ID and password at the email address you provided. 4. Next choose a user name and password. Your user name must be at least 4 characters long and your password must be at least 4 characters long. 5. Choose a security question from the list and provide your answer to the question. If you already have signed into the Health Portal you may access your Health Care Information 30/10 by the following steps: 1. Login to our website @ [email or web address] 2. Enter your original user name and password. FAQS The [facility] Health Portal is an online tool that contains your Lab Results, Radiology Reports, Visit History, Discharge Instructions and Health Summary Lab and Radiology Results will not be available for 72 hours on the portal. The Portal is a secure site, passwords are encryted and URLs are re-written so they cannot be copied and pasted. You and authorized family members are the only ones who can access your Portal. Also there is a timeout feature that protects your information if you leave the Portal page open. If you have technical difficulty please use the Contact Us link on the page this will allow you to submit any questions you have regarding the Portal or you may contact the Medical Record Department at [phone] ext [phone]. Prescriptions: Nabumetone 500 mg PO BID #15 tablet
[2020-04-09] MEDS ORDERED: TORAdol 30 mg Injection ONE (11:12)
[2020-04-09] MEDS ORDERED: Norflex 60 MG/2 ML ONE (11:12)
[2020-04-09] MEDS ORDERED: BENADRYL 50 MG/ML ONE (11:12)
[2020-04-09 11:28] VITALS: PULSE 72
[2020-04-09 11:57] VITALS: BP 127/91; O2SAT 94
--- NOTE | 2020-04-09 17:59 | XRAY ---
Indication: Low back pain following lifting injury. Comparison: February 19, 2020. 3 view lumbar spine unchanged again demonstrating normal alignment with minimal T12-L2 anterior anterior wedging, minimal L4/L5 anterior endplate spurring, right renal microcalculi, and right lower quadrant suture material. No new/acute findings.
== END 2020-04-09 12:04 | disposition home or self-care (01) ==
LOC: ED 10:38
DX: M54.5 Low back pain (principal); M62.830 Muscle spasm of back; X50.0XXA Overexertion from strenuous movement or load, initial encounter; M79.605 Pain in left leg; M79.604 Pain in right leg; Z79.899 Other long term (current) drug therapy
CPT/HCPCS: 72100; 74176; 76376; 81001; 96372; 99284; J1100; J1200; J1885; J2270; J2360; A9270-GY

== ENCOUNTER 2020-04-09 20:34 | Emergency (ER) | payer OTHER ==
[2020-04-09 20:46] VITALS: O2SAT 97
[2020-04-09] MEDS ORDERED: DECADRON 10MG INJ. PO ONE (20:53)
[2020-04-09] MEDS ORDERED: TORAdol 30 mg Injection IM ONE (20:54)
[2020-04-09] MEDS ORDERED: TORAdol 30 mg Injection ONE (20:55)
[2020-04-09] MEDS ORDERED: Decadron 4 MG ONE (21:05)
--- NOTE | 2020-04-09 22:32 | ERPHSYRPT ---
- History of Present Illness Time Seen by Provider: 04/09/20 20:50 Source: patient Exam Limitations: no limitations Patient Subjective Stated Complaint: pt c/o low back pain Triage Nursing Assessment: pt c/o lt lower back pain. Pt has here this morning after injury at work to back but is not getting any pain relief and "just couldn't take it anymore". Physician History: Patient is a 45-year-old male presents to our ED with complaints of back pain. Patient was at work this morning. 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 Patient states while lifting he felt a pop in his low back. Patient came into our ED for back pain. Patient was evaluated and treated. Patient was discharged with pain medication. Patient filled his prescriptions and took his medications as recommended. Patient is here because his back pain continues. Pain described as an ache that is localized to the left lumbar paraspinal. Pain is localized. No radiation. Pain worse with movement and palpation. Pain improved with rest. No change in bowel bladder function. No fever. No saddle anesthesia. No lower extremity weakness. No numbness tingling or weakness. No fever. No recent back procedure. Patient is otherwise healthy. He voices no other complaints or concerns at this time. Timing/Duration: today Severity: moderate Modifying Factors: Improves With: movement Associated Symptoms: No nausea, No vomiting, No abdominal pain, No shortness of breath, No diaphoresis, No chest pain, No fever, No headaches, No syncope Allergies/Adverse Reactions: No Known Drug Allergies Allergy (Verified 04/09/20 20:55) Home Medications: Levothyroxine Sodium 100 mcg PO DAILY 01/18/19 [History] PANTOPRAZOLE 40 mg Tablet [Protonix 40MG Tablet] 40 mg PO DAILY 01/18/19 [History] Bupropion HCl Xl 150 mg [Wellbutrin XL 150 MG] 150 mg PO DAILY 07/15/19 [History] Sertraline HCl 50 mg [Zoloft 50 mg Tablet] 50 mg PO DAILY 07/15/19 [History] Aspirin EC 81 mg [Ecotrin 81 mg] 81 mg PO DAILY 07/31/19 [History] Atorvastatin Calcium [Lipitor] 40 mg PO DAILY 07/31/19 [History] Clopidogrel Bisulfate [Clopidogrel] 75 mg PO DAILY 07/31/19 [History] Hx Tetanus, Diphtheria Vaccination/Date Given: Yes Hx Influenza Vaccination/Date Given: Yes Hx Pneumococcal Vaccination/Date Given: No Immunizations Up to Date: Yes Travel Risk - International Travel Have you traveled outside of the country in past 3 weeks: No - Coronavirus Screening Are you exhibiting any of the following symptoms?: Yes Symptoms: Vomiting/Diarrhea, Headaches/Body Aches/Fatigue Close contact with a COVID-19 positive Pt in past 14-21 Days: No - Review of Systems Constitutional: No Symptoms, No Fever, No Chills Eyes: No Symptoms Ears, Nose, & Throat: No Symptoms Respiratory: No Symptoms, No Cough, No Dyspnea Cardiac: No Symptoms, No Chest Pain, No Edema, No Syncope Abdominal/Gastrointestinal: No Symptoms, No Abdominal Pain, No Nausea, No Vomiting, No Diarrhea Genitourinary Symptoms: No Symptoms, No Dysuria Musculoskeletal: No Symptoms, No Back Pain, No Neck Pain Skin: No Symptoms, No Rash Neurological: No Symptoms, No Dizziness, No Focal Weakness, No Sensory Changes Psychological: No Symptoms Endocrine: No Symptoms Hematologic/Lymphatic: No Symptoms Immunological/Allergic: No Symptoms All Other Systems: Reviewed and Negative - Past Medical History Pertinent Past Medical History: Yes Neurological History: Migraines ENT History: No Pertinent History Cardiac History: No Pertinent History Respiratory History: No Pertinent History Endocrine Medical History: Hypothyroidism Musculoskeletal History: No Pertinent History GI Medical History: GERD History: Other Psycho-Social History: No Pertinent History Male Reproductive Disorders: No Pertinent History Other Medical History: spontaneous pneumo, appendectomy, r knee surgery x2, ulnar nerve release surgery, kidney stone. vertigo - Past Surgical History Past Surgical History: Yes Neuro Surgical History: No Pertinent History Cardiac: No Pertinent History Respiratory: Other Gastrointestinal: Appendectomy Genitourinary: No Pertinent History Musculoskeletal: Orthopedic Surgery Male Surgical History: No Pertinent History Other Surgical History: right knee x2, elbow surgery - Social History Smoking Status: Former smoker Exposure to second hand smoke: No Drug Use: none Patient Lives Alone: Yes - Nursing Vital Signs Nursing Vital Signs: Initial Vital Signs Temperature 98.6 F 04/09/20 20:45 Pulse Rate 80 04/09/20 20:45 Respiratory Rate 18 04/09/20 20:45 Blood Pressure 129/82 04/09/20 20:45 O2 Sat by Pulse Oximetry 97 04/09/20 20:45 Pain Scale Pain Intensity [] 9 Pain Intensity 9 - Physical Exam General Appearance: no apparent distress, alert Eye Exam: PERRL/EOMI, eyes nml inspection Ears, Nose, Throat Exam: normal ENT inspection, TMs normal, pharynx normal, moist mucous membranes Neck Exam: normal inspection, non-tender, supple, full range of motion Respiratory Exam: normal breath sounds, lungs clear, No respiratory distress Cardiovascular Exam: regular rate/rhythm, normal heart sounds, normal peripheral pulses Gastrointestinal/Abdomen Exam: soft, normal bowel sounds, No tenderness, No mass Back Exam: normal inspection, normal range of motion, other (Tenderness to palpation at left lumbar paraspinal musculature. Overlying soft tissue intact. Palpation and movement reproduce symptoms. Bilateral lower extremities are neurovascular intact distally with bilaterally equal knee DTR.), No CVA tenderness, No vertebral tenderness Extremity Exam: normal inspection, normal range of motion, pelvis stable Neurologic Exam: alert, 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, cooperative, normal mood/affect, nml cerebellar function, nml station & gait, sensation nml, No motor deficits Skin Exam: normal color, warm, dry, No rash Lymphatic Exam: No adenopathy SpO2 Interpretation: normal SpO2: 97 O2 Delivery: Room Air - Course Nursing assessment & vital signs reviewed: Yes - CT Exams Lumbar Spine CT Interpretation: Tele-radiologist Report (Of ureteral stone. Bilateral renal stones.) Ordered Tests: Active Orders 24 hr Category Date Time Status ABDOMEN AND PELVIS W/0 CONTRAS [CT] Stat Exams 04/09/20 20:50 Taken RECONSTRUCTION [CT] Stat Exams 04/09/20 20:56 Taken UA W/RFX UR CULTURE Stat Lab 04/09/20 22:23 Completed Medication Summary Discontinued Medications Generic Name Dose Route Start Last Admin Trade Name Olivia PRN Reason Stop Dose Admin Dexamethasone Confirm 04/09/20 21:05 Decadron 4 Mg Administered 04/09/20 21:06 Dose 12 mg .ROUTE .STK-MED ONE Dexamethasone Sodium Phosphate 10 mg 04/09/20 20:53 04/09/20 21:31 Decadron 10mg Inj. PO 04/09/20 20:54 10 mg STAT ONE Administration Ketorolac Tromethamine 30 mg 04/09/20 20:54 04/09/20 21:31 Toradol 30 Mg Injection IM 04/09/20 20:55 30 mg STAT ONE Administration Ketorolac Tromethamine Confirm 04/09/20 20:55 Toradol 30 Mg Injection Administered 04/09/20 20:56 Dose 30 mg .ROUTE .STK-MED ONE Morphine Sulfate 4 mg 04/09/20 22:40 04/09/20 22:44 Morphine Sulfate 4 Mg Inj IV 04/09/20 22:41 4 mg STAT ONE Administration Morphine Sulfate Confirm 04/09/20 22:43 Morphine Sulfate 4 Mg Inj Administered 04/09/20 22:44 Dose 4 mg .ROUTE .STK-MED ONE Lab/Rad Data: Laboratory Results 04/09/20 Range/Units 22:23 Urine Color YELLOW (YELLOW) Urine Appearance CLEAR (CLEAR) Urine pH 6.0 (5-6) Ur Specific [place] 1.016 (1.005-1.025) Urine Protein NEGATIVE (Negative) Urine Ketones NEGATIVE (NEGATIVE) Urine Blood NEGATIVE (0-5) A[place]o/ul Urine Nitrite NEGATIVE (NEGATIVE) Urine Bilirubin NEGATIVE (NEGATIVE) Urine Urobilinogen 2 (0-1) mg/dL Ur Leukocyte Esterase NEGATIVE (NEGATIVE) Urine WBC (Auto) NONE (0-5) /HPF Urine RBC (Auto) NONE (0-2) /HPF U Epithel Cells (Auto) NONE (FEW) /HPF Urine Bacteria (Auto) NONE (NEGATIVE) /HPF Urine Mucus (Auto) SLIGHT (NEGATIVE) /HPF Urine Culture Reflexed NO (NO) Urine Glucose NEGATIVE (NEGATIVE) mg/dL - Progress Progress: improved Progress Note: 04/09/20 22:56 Patient reassessed. Pain improved. CT abdomen pelvis and lumbar spine negative for acute pathology. Incidental bilateral nephrolithiasis. No ureteral lithiasis. No obstructing stones. UA negative. Patient received Decadron Toradol and morphine for pain control. Will discharge home. Will provide patient with a work note. Plan of care discussed with patient. He agrees to follow-up with his primary care doctor within 48 hours for reevaluation. Patient is on Levaquin which increases risk for tenderness injuries. Patient advised not to do anything strenuous at all until his pain significantly improves and he is cleared for physical activity by his primary care doctor. Counseled pt/family regarding: lab results, diagnosis, need for follow-up, rad results - Departure Departure Disposition: Home Clinical Impression: Lumbosacral strain, Nephrolithiasis Condition: Stable Critical Care Time: No Referrals: MARY BURGESS [Primary Care Provider] - Additional Instructions: Discharge/Care Plan BHARATH ESPARZA was seen on 04/09/20 in the Emergency Room. The patient was counseled regarding Diagnosis,Lab results, Imaging studies, need for follow up and when to return to the Emergency Room. Prescriptions given: Discharge Note I have spoken with the patient and/or caregivers. I have explained the patient's condition, diagnosis and treatment plan based on the information available to me at this time. I have answered the patient's and/or caregiver's questions and addressed any concerns. The patient and/or caregivers have as good understanding of the patient's diagnosis, condition and treatment plan as can be expected at this point. The vital signs have been stable. The patient's condition is stable and appropriate for discharge from the emergency department. The patient will pursue further outpatient evaluation with the primary care physician or other designated or consulting physician as outlined in the discharge instructions. The patient and/or caregivers are agreeable to this plan of care and follow-up instructions have been explained in detail. The patient and/or caregivers have received these instruction. The patient/and or caregivers are aware that any significant change in condition or worsening of symptoms should prompt an immediate return to this or the closest emergency department or call 911. Forms: Work/School Release Form
[2020-04-09] MEDS ORDERED: MORPHINE SULFATE 4 MG INJ IV ONE (22:40)
[2020-04-09] MEDS ORDERED: MORPHINE SULFATE 4 MG INJ ONE (22:43)
[2020-04-09 22:45] LABS: Appearance CLEAR (CLEAR); Bilirubin NEGATIVE (NEGATIVE); Blood NEGATIVE Ery/ul (0-5); Glucose NEGATIVE (NEGATIVE); Ketones NEGATIVE (NEGATIVE); Leukocyte Esterase NEGATIVE (NEGATIVE); Mucus SLIGHT /HPF (NEGATIVE); Nitrite NEGATIVE (NEGATIVE); Protein,Urine Dip NEGATIVE (Negative); Specific Gravity 1.016 (1.005-1.025); Urobilinogen 2 mg/dL (0-1)
[2020-04-09 23:03] VITALS: BP 114/81; PULSE 71
--- NOTE | 2020-04-10 08:22 | XRAY ---
Indication: Low back/left flank pain. Multiple contiguous axial images obtained through the abdomen and pelvis without contrast using renal stone protocol. Comparison: July 31, 2019. Lung bases remain clear. Heart is not enlarged. Right kidney again demonstrates 3 and left kidney demonstrates 1 nonobstructing microcalculi. No evidence for obstructive uropathy in either system. 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 Noncontrasted stomach and bowel loops appear nonobstructed. Previous appendectomy. No free fluid/air. Stable benign chunky prostate calcifications. Remaining liver, gallbladder, pancreas, spleen, adrenal glands, kidneys, ureters, and bladder are unremarkable for noncontrast exam. Osseous structures remain intact again with minimal degenerative changes throughout the spine and small right superior acetabulum bone island. Impression: 1. Again nonobstructing bilateral renal microcalculi, tiny left renal angiomyolipoma, benign prostate calcifications, and chronic bony findings. 2. Remaining CT abdomen/pelvis without contrast exam is negative. Comment: Preliminary interpretation was made by [facility]. No critical discrepancy.
--- NOTE | 2020-04-10 08:23 | XRAY ---
Indication: Low back/left flank pain. Multiple contiguous axial images obtained through the lumbar spine. Sagittal and coronal reformatted images obtained. Comparison: CT abdomen/pelvis July 31, 2019. Axial images again demonstrates mild multilevel broad-based disc bulge. No obvious large disc herniation. Facets are symmetric. Sagittal and coronal reformatted images again demonstrates normal lumbar alignment with vertebral body heights/disc spaces maintained. No acute compression fracture or suspicious bony lesions. CT abdomen/pelvis reported separately. Impression: Stable multilevel degenerative disc disease. Outpatient MRI lumbar spine may yield further information if clinically warranted. Comment: Preliminary interpretation was made by [facility]. No critical discrepancy.
== END 2020-04-09 23:12 | disposition home or self-care (01) ==
LOC: ED 20:34
DX: S39.012A Strain of muscle, fascia and tendon of lower back, initial encounter (principal); N20.0 Calculus of kidney; X50.0XXA Overexertion from strenuous movement or load, initial encounter; Z79.899 Other long term (current) drug therapy
CPT/HCPCS: 74176; 76376; 81001; 96372; 99284; J1100; J1885; J2270; A9270-GY

== ENCOUNTER 2020-04-22 19:02 | Emergency (ER) | payer OTHER ==
[2020-04-22] MEDS ORDERED: TORAdol 30 mg Injection IM ONE (19:51)
[2020-04-22] MEDS ORDERED: TORAdol 30 mg Injection ONE (19:54)
--- NOTE | 2020-04-22 20:05 | ERPHSYRPT ---
- History of Present Illness Source: patient Exam Limitations: no limitations Patient Subjective Stated Complaint: pt states that he woke up with hip this morning and the pain has increased all day Triage Nursing Assessment: pt came into the er via wheelchair; pt is axo x3; c/o NICK hip pain; pt grabbing both hips in pain; pt denies any fall or injury to hips; states 10/10 pain to NICK hips; pt states that pain is worse to rt hip; pain to NICK hip with palpation; pt states that pain with movement and breathing; no deformity present to hips; strong nick pedal pulses; strong pushes and pulls to BLE; clear lung sounds in all lobes; active bowel sounds in all quads; vitals wnl Physician History: 45 yo wm w B hip pain x2days. Pt denies injury/fever/dysuria/hematuria. He was recently diagnosed spinal stenosis but denies that pain radiates from his back. Method of Injury: unknown (No injury) Occurred: other (3 days) Quality: aching Severity of Pain-Max: severe Severity of Pain-Current: severe Lower Extremities Pain: hip: bilateral Modifying Factors: Improves With: movement Associated Symptoms: none Allergies/Adverse Reactions: No Known Drug Allergies Allergy (Verified 04/22/20 19:07) Home Medications: Levothyroxine Sodium 100 mcg PO DAILY 01/18/19 [History] PANTOPRAZOLE 40 mg Tablet [Protonix 40MG Tablet] 40 mg PO DAILY 01/18/19 [History] Bupropion HCl Xl 150 mg [Wellbutrin XL 150 MG] 150 mg PO DAILY 07/15/19 [History] Sertraline HCl 50 mg [Zoloft 50 mg Tablet] 100 mg PO DAILY 07/15/19 [History] Aspirin EC 81 mg [Ecotrin 81 mg] 81 mg PO DAILY 07/31/19 [History] Atorvastatin Calcium [Lipitor] 40 mg PO DAILY 07/31/19 [History] Clopidogrel Bisulfate [Clopidogrel] 75 mg PO DAILY 07/31/19 [History] Meclizine HCl 25 mg [Antivert 25 mg] 25 mg PO DAILY 04/22/20 [History] Trazodone HCl [Desyrel] 200 mg PO HS 04/22/20 [History] Hx Tetanus, Diphtheria Vaccination/Date Given: Yes Hx Influenza Vaccination/Date Given: Yes Hx Pneumococcal Vaccination/Date Given: No Travel Risk - International Travel Have you traveled outside of the country in past 3 weeks: No - Coronavirus Screening Are you exhibiting any of the following symptoms?: No Close contact with a COVID-19 positive Pt in past 14-21 Days: No - Review of Systems Constitutional: No Symptoms Eyes: No Symptoms Ears, Nose, & Throat: No Symptoms Respiratory: No Symptoms Cardiac: No Symptoms Abdominal/Gastrointestinal: No Symptoms Genitourinary Symptoms: No Symptoms Skin: No Symptoms Neurological: No Symptoms Psychological: No Symptoms Endocrine: No Symptoms Hematologic/Lymphatic: No Symptoms Immunological/Allergic: No Symptoms - Past Medical History Pertinent Past Medical History: Yes Neurological History: Migraines ENT History: No Pertinent History Cardiac History: High Cholesterol Respiratory History: No Pertinent History Endocrine Medical History: Hypothyroidism Musculoskeletal History: No Pertinent History GI Medical History: GERD History: Other Psycho-Social History: No Pertinent History Male Reproductive Disorders: No Pertinent History Other Medical History: spontaneous pneumo, appendectomy, r knee surgery x2, ulnar nerve release surgery, kidney stone. vertigo - Past Surgical History Past Surgical History: Yes Neuro Surgical History: No Pertinent History Cardiac: No Pertinent History Respiratory: Other Gastrointestinal: Appendectomy Genitourinary: No Pertinent History Musculoskeletal: Orthopedic Surgery Male Surgical History: No Pertinent History Other Surgical History: right knee x3, elbow surgery - Social History Smoking Status: Former smoker Exposure to second hand smoke: No Drug Use: none Patient Lives Alone: Yes Significant Family History: no pertinent family hx - Nursing Vital Signs Nursing Vital Signs: Initial Vital Signs Temperature 96.4 F 04/22/20 19:13 Pulse Rate 82 04/22/20 19:13 Respiratory Rate 16 04/22/20 19:13 Blood Pressure 139/100 04/22/20 19:13 O2 Sat by Pulse Oximetry 98 04/22/20 19:13 Pain Scale Pain Intensity 5 - Physical Exam General Appearance: no apparent distress Eyes, Ears, Nose, Throat Exam: normal ENT inspection Neck Exam: normal inspection, non-tender, supple, full range of motion, No Brudzinski, No Kernig's, No meningismus, No carotid bruit Cardiovascular/Respiratory Exam: normal breath sounds, regular rate/rhythm, heart sounds normal, no ecchymosis, no JVD, no respiratory distress Gastrointestinal/Abdominal Exam: non-tender, soft, no organomegaly Back Exam: normal inspection, vertebral tenderness (Mild TTP) Hips Exam: bilateral: bone tenderness Legs Exam: bilateral leg: non-tender, normal inspection, normal range of motion, no evidence of injury Knees Exam: bilateral knee: non-tender, normal inspection, normal range of motion, no evidence of injury, bone tenderness Foot Exam: bilateral foot: non-tender, normal inspection, normal range of motion, no evidence of injury DTR - Lower Extremities Exam: knee (R): 2+, knee (L): 2+ Neuro/Tendon Exam: normal sensation, normal motor functions, normal tendon functions, responds to pain, no evidence tendon injury, No motor deficit, No sensory deficit 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, 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, cooperative Skin Exam: normal color, warm, dry, No rash SpO2 Interpretation: normal SpO2: 98 O2 Delivery: Room Air - Radiology Exams Pelvis X-ray Interpretation: Interpreted by me (Nothing acute) Ordered Tests: Active Orders 24 hr Category Date Time Status PELVIS (1 OR 2 VIEWS) Stat Exams 04/22/20 20:13 Taken SED RATE [Erythrocyte Sedimentation Rate] Stat Lab 04/22/20 20:15 Completed Medication Summary Discontinued Medications Generic Name Dose Route Start Last Admin Trade Name Giovaniq PRN Reason Stop Dose Admin Ketorolac Tromethamine 60 mg 04/22/20 19:51 04/22/20 19:55 Toradol 30 Mg Injection IM 04/22/20 19:52 60 mg STAT ONE Administration Ketorolac Tromethamine Confirm 04/22/20 19:54 Toradol 30 Mg Injection Administered 04/22/20 19:55 Dose 60 mg .ROUTE .STK-MED ONE Methylprednisolone Sodium Succinate 125 mg 04/22/20 20:57 04/22/20 21:03 Solu-Medrol 40 Mg IM 04/22/20 20:58 Not Given STAT ONE Methylprednisolone Sodium Succinate Confirm 04/22/20 21:01 Solu-Medrol 125 Mg Administered 04/22/20 21:02 Dose 125 mg .ROUTE .STK-MED ONE Methylprednisolone Sodium Succinate 125 mg 04/22/20 21:04 04/22/20 21:04 Solu-Medrol 125 Mg IM 04/22/20 21:05 125 mg STAT ONE Administration Orphenadrine Citrate 60 mg 04/22/20 20:57 04/22/20 21:05 Norflex 60 Mg/2 Ml IM 04/22/20 20:58 60 mg STAT ONE Administration Orphenadrine Citrate Confirm 04/22/20 21:01 Norflex 60 Mg/2 Ml Administered 04/22/20 21:02 Dose 60 mg .ROUTE .STK-MED ONE Lab/Rad Data: Laboratory Results 04/22/20 Range/Units 20:15 ESR 3 (0-15) mm/hr - Progress Progress: improved Progress Note: 04/22/20 20:58 60mg IM Toradol wo improvement 60mg IM Norflex/125mg IM Solumedrol before dc Pt asked for work excuse Counseled pt/family regarding: lab results, need for follow-up, rad results - Departure Departure Disposition: Home Clinical Impression: Arthralgia of hip Condition: Stable Critical Care Time: No Referrals: MARY BURGESS [Primary Care Provider] - Instructions: Hip Pain (DC) Additional Instructions: Follow up with your family MD in 1-2 days Return to ER for increasing pain or temperature greater than 100.5 Prednisone twice a day for 3 days starting tomorrow Norflex twice a day as needed Rest/Heat/Massage Forms: Work/School Release Form Prescriptions: Orphenadrine Citrate 100 mg [Norflex 100 MG Tablet] 100 mg PO BID PRN PRN #10 tab PRN Reason: Pain predniSONE [Prednisone] 10 mg PO BID 3 Days #6 tab.ds.pk
[2020-04-22] MEDS ORDERED: Norflex 60 MG/2 ML IM ONE (20:57)
[2020-04-22] MEDS ORDERED: solu-MEDROL 40 MG IM ONE (20:57)
[2020-04-22] MEDS ORDERED: solu-MEDROL 125 MG ONE (21:01)
[2020-04-22] MEDS ORDERED: Norflex 60 MG/2 ML ONE (21:01)
[2020-04-22] MEDS ORDERED: solu-MEDROL 125 MG IM ONE (21:04)
[2020-04-22 21:18] VITALS: BP 139/84; PULSE 71
[2020-04-22 21:40] VITALS: O2SAT 98
--- NOTE | 2020-04-23 09:02 | XRAY ---
Indication: Bilateral hip pain 3 days. No known injury. Comparison: None Single AP pelvis demonstrates tiny right superior acetabulum/left inferior pubic bone islands, minimal bilateral vascular calcifications, and appendectomy suture material. No other bony, articular, or soft tissue abnormalities.
== END 2020-04-22 21:30 | disposition home or self-care (01) ==
LOC: ED 19:02
DX: M25.552 Pain in left hip (principal); M25.551 Pain in right hip; Z79.899 Other long term (current) drug therapy
CPT/HCPCS: 36415; 72170; 85652; 96372; 99284; J1885; J2360; J2930

== ENCOUNTER 2020-05-20 20:18 | Emergency (ER) | payer OTHER ==
[2020-05-20] MEDS ORDERED: TORAdol 30 mg Injection IV ONE (20:36)
[2020-05-20] MEDS ORDERED: Sodium Chloride 0.9% 1000 ML 1,000 ML IV STA (20:36)
[2020-05-20] MEDS ORDERED: Compazine 10 MG/2 ML IV ONE (20:36)
[2020-05-20] MEDS ORDERED: BENADRYL 50 MG/ML IV ONE (20:39)
[2020-05-20] MEDS ORDERED: Compazine 10 MG/2 ML ONE (20:53)
[2020-05-20] MEDS ORDERED: BENADRYL 50 MG/ML ONE (20:53)
[2020-05-20] MEDS ORDERED: Sodium Chloride 0.9% 1000 ML 1,000 ML ONE (20:53)
[2020-05-20] MEDS ORDERED: TORAdol 30 mg Injection ONE (20:53)
[2020-05-20 21:02] LABS: Absolute Neutrophil Ct (ANC) 5.17 (1.4-6.9); BASOPHIL % 0.2 % (0.0-0.4); Basophil (Absolute #) 0.02 (0-0.4); Eosinophil % 1.3 % (0.00-5.0); Eosinophil (Absolute #) 0.11 (0-0.5); Hematocrit 47.2 % (42-50); Hemoglobin 15.7 gm/dl (12.5-18.0); Lymphocyte (Absolute #) 2.24 (1.0-4.6); Lymphocytes % 27.4 % (24.0-44.0); Mean Cell Volume 92.7 fl (78-100); Mean Corpuscular Hemoglobin 30.8 pg (26-32); Mean Corpuscular Hgb Concent. 33.3 g/dl (32-36); Mean Platelet Volume 9.6 fl (7.5-11.0); Monocyte (Absolute #) 0.63 (0.0-1.3); Monocytes % 7.7 % (0.0-12.0); Neutrophil % 63.4 % (36.0-66.0); Platelet Count 205 K/mm3 (150-450); Red Blood Count 5.09 M/mm3 (4.1-5.6); Red Cell Distribution Width 14.9 % (11.5-14.0); White Blood Count 8.2 K/mm3 (4.0-10.5)
[2020-05-20 21:16] LABS: ALBUMIN 4.4 g/dL (3.5-5.0); ALKALINE PHOSPHATASE 126 U/L (38-126); ANION GAP 13.2 MEQ/L (5-15); BLOOD UREA NITROGEN 8 mg/dL (9-20); CHLORIDE 104 mmol/L (98-107); Calcium 9.2 mg/dL (8.4-10.2); Carbon Dioxide 24 mmol/L (22-30); Creatinine 1 0.78 mg/dL (0.66-1.25); EST GLOMERULAR FILTRATION RATE > 60.0 ML/MIN; Glucose 107 mg/dL (74-106); SGOT/AST 24 U/L (17-59); SGPT/ALT 24 U/L (0-50); SODIUM 137 mmol/L (137-145); Total Protein 7.7 g/dL (6.3-8.2)
[2020-05-20 21:24] VITALS: O2SAT 98
--- NOTE | 2020-05-20 21:32 | ERPHSYRPT ---
- History of Present Illness Time Seen by Provider: 05/20/20 20:40 Patient Subjective Stated Complaint: Patient states " I have been having a H/A since Sunday and I am supposed to take Imitrex on the onset but I dont have any at home. I have been having N/V also since Sunday and I haven't been able to keep anything down. I have also been having severe dizziness since Sunday and have been trouble just standing up". Triage Nursing Assessment: Patient arrived into ED in W/C. Patient noted to have hat down over bilateral eyes. Patient A/O times 4. Patient able to follow directions without difficulty. Patient one assist to bed R/T dizziness. Patient bilateral pupils brisk and reactive to light. 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 Patient states he has HX migraines and he has had a migraine since Sunday. Patient stated he has had N/V and dizziness. NIHSS scale completed and patient scored 0. Patient bilateral lung sounds clear A/P throughout. Patient denies SOB. Patient denies chest pain. Cap refill < 3 seconds. No S/S of respiratory distress. Skin turgor < 3 seconds. Oral mucosa clean, moist. No S/S of dehydration noted. Patient noted with + radial and pedal pulses bilateral. No dependent edema noted. Patient stated he has had generalized weakness since Sunday. Physician History: Patient is a 45-year-old male presents to our ED with complaints of a migraine headache. Patient has a history of migraine headaches. Patient states today's headache is typical of his usual migraine. Patient's current headache started on Sunday. Patient normally takes Imitrex however he ran out of his Imitrex. Patient's migraine is associated with dizziness and photophobia. No neck pain. No fever. No meningeal signs. No trauma. Symptoms are mild to moderate in intensity. No specific worsening improving factors. No associated numbness tingling or weakness. Patient is otherwise healthy. He voices no other complaints at this time. Timing/Duration: day(s) (2 days ago.) Quality: aching Head Pain Location: temporal (Headache is right temporal. Patient states this is typical of his usual headaches however his headaches typically switch sides from left to right temporal.) Severity of Pain-Max: moderate Severity of Pain-Current: mild Recent Head Trauma: no recent headache/trauma, occasional headaches Modifying Factors: Improves With: exposure to light, noise Associated Symptoms: dizziness, nausea/vomiting (Nausea vomiting at home. No nausea vomiting in our ED.), No facial pain, No loss of consciousness Previous symptoms: same symptoms as today Allergies/Adverse Reactions: No Known Drug Allergies Allergy (Verified 05/20/20 20:49) Home Medications: Levothyroxine Sodium 100 mcg PO DAILY 01/18/19 [History] PANTOPRAZOLE 40 mg Tablet [Protonix 40MG Tablet] 40 mg PO DAILY 01/18/19 [History] Bupropion HCl Xl 150 mg [Wellbutrin XL 150 MG] 150 mg PO DAILY 07/15/19 [History] Sertraline HCl 50 mg [Zoloft 50 mg Tablet] 200 mg PO DAILY 07/15/19 [History] Aspirin EC 81 mg [Ecotrin 81 mg] 81 mg PO DAILY 07/31/19 [History] Atorvastatin Calcium [Lipitor] 40 mg PO DAILY 07/31/19 [History] Clopidogrel Bisulfate [Clopidogrel] 75 mg PO DAILY 07/31/19 [History] Trazodone HCl [Desyrel] 200 mg PO HS 04/22/20 [History] Hx Tetanus, Diphtheria Vaccination/Date Given: Yes Hx Influenza Vaccination/Date Given: Yes Hx Pneumococcal Vaccination/Date Given: No Immunizations Up to Date: Yes Travel Risk - International Travel Have you traveled outside of the country in past 3 weeks: No - Coronavirus Screening Are you exhibiting any of the following symptoms?: No Close contact with a COVID-19 positive Pt in past 14-21 Days: No - Review of Systems Constitutional: No Symptoms, No Fever, No Chills Eyes: No Symptoms Ears, Nose, & Throat: No Symptoms Respiratory: No Symptoms, No Cough, No Dyspnea Cardiac: No Symptoms, No Chest Pain, No Edema, No Syncope Abdominal/Gastrointestinal: No Symptoms, No Abdominal Pain, No Nausea, No Vomiting, No Diarrhea Genitourinary Symptoms: No Symptoms, No Dysuria Musculoskeletal: No Symptoms, No Back Pain, No Neck Pain Skin: No Symptoms, No Rash Neurological: No Symptoms, No Dizziness, No Focal Weakness, No Sensory Changes Psychological: No Symptoms Endocrine: No Symptoms Hematologic/Lymphatic: No Symptoms Immunological/Allergic: No Symptoms All Other Systems: Reviewed and Negative - Past Medical History Pertinent Past Medical History: Yes Neurological History: Migraines ENT History: No Pertinent History Cardiac History: High Cholesterol Respiratory History: No Pertinent History Endocrine Medical History: Hypothyroidism Musculoskeletal History: No Pertinent History GI Medical History: GERD History: Other Psycho-Social History: Anxiety, Depression Male Reproductive Disorders: No Pertinent History Other Medical History: spontaneous pneumo, appendectomy, r knee surgery x2, ulnar nerve release surgery, kidney stone. vertigo - Past Surgical History Past Surgical History: Yes Neuro Surgical History: No Pertinent History Cardiac: No Pertinent History Respiratory: Other Gastrointestinal: Appendectomy Genitourinary: No Pertinent History Musculoskeletal: Orthopedic Surgery Male Surgical History: No Pertinent History Other Surgical History: right knee x3, elbow surgery - Social History Smoking Status: Former smoker Exposure to second hand smoke: No Drug Use: none Patient Lives Alone: Yes Significant Family History: no pertinent family hx - Nursing Vital Signs Nursing Vital Signs: Initial Vital Signs Temperature 99.0 F 05/20/20 20:34 Pulse Rate 85 05/20/20 20:34 Respiratory Rate 20 05/20/20 20:34 Blood Pressure 138/98 05/20/20 20:34 O2 Sat by Pulse Oximetry 96 05/20/20 20:34 Pain Scale Pain Intensity 6 - Physical Exam General Appearance: no apparent distress Eye Exam: PERRL/EOMI Ears, Nose, Throat Exam: normal ENT inspection, moist mucous membranes Neck Exam: normal inspection, supple, full range of motion, No meningismus Respiratory Exam: normal breath sounds, lungs clear Cardiovascular Exam: regular rate/rhythm, normal heart sounds Gastrointestinal/Abdominal Exam: soft, No tenderness, No distention Back Exam: normal inspection, normal range of motion 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, 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, cooperative, No agitated, No uncooperative, No depressed affect, No disoriented to person, No disoriented to place, No disoriented to time, No intoxicated appearance, No lethargy, 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 cargo 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 Exam: normal hearing, normal speech, PERRL, tongue midline, No abnormal eye position, No abnormal pupil position, No facial asymmetry, No facial droop, No facial paresthesias, No facial weakness, No gaze palsy, No hearing deficit (R), No hearing deficit (L), No tongue deviation to R, No tongue deviation to L Coordination/Gait Exam: normal cerebellar function Motor/Sensory Exam: no motor deficit, no sensory deficit, no pronator drift, No pronator drift (R), No pronator drift (L), No sensory deficit, No weak motor strength RUE, No weak motor strength LUE, No weak motor strength RLE, No weak motor strength LLE Skin Exam: normal color, warm, dry, No rash Lymphatic Exam: No adenopathy SpO2 Interpretation: normal SpO2: 98 O2 Delivery: Room Air - Course Nursing assessment & vital signs reviewed: Yes - CT Exams Head CT Interpretation: Tele-radiologist Report (No comps. Mild bilateral ethmoid an d left maxillary sinus disease. 1 cm left frontal/retention cyst. Otherwise normal CT head.) Ordered Tests: Active Orders 24 hr Category Date Time Status IV Insertion STAT Care 05/20/20 20:36 Active HEAD WITHOUT CONTRAST [CT] Stat Exams 05/20/20 20:37 Taken CBC W DIFF Stat Lab 05/20/20 20:59 Completed CMP Stat Lab 05/20/20 20:59 Completed UA W/RFX UR CULTURE Stat Lab 05/20/20 21:58 Completed Urine Triage Profile Stat Lab 05/20/20 21:58 Completed Medication Summary Discontinued Medications Generic Name Dose Route Start Last Admin Trade Name Freq PRN Reason Stop Dose Admin Diphenhydramine HCl 25 mg 05/20/20 20:39 05/20/20 20:55 Benadryl 50 Mg/Ml IV 05/20/20 20:40 25 mg STAT ONE Administration Diphenhydramine HCl Confirm 05/20/20 20:53 Benadryl 50 Mg/Ml Administered 05/20/20 20:54 Dose 50 mg .ROUTE .STK-MED ONE Sodium Chloride 1,000 mls @ 999 mls/hr 05/20/20 20:36 05/20/20 20:56 Sodium Chloride 0.9% 1000 Ml IV 05/20/20 21:36 999 mls/hr .Q1H1M STA Administration Sodium Chloride Confirm 05/20/20 20:53 Sodium Chloride 0.9% 1000 Ml Administered 05/20/20 20:54 Dose 1,000 mls @ ud .ROUTE .STK-MED ONE Ketorolac Tromethamine 30 mg 05/20/20 20:36 05/20/20 20:56 Toradol 30 Mg Injection IV 05/20/20 20:37 30 mg STAT ONE Administration Ketorolac Tromethamine Confirm 05/20/20 20:53 Toradol 30 Mg Injection Administered 05/20/20 20:54 Dose 30 mg .ROUTE .[facility] ONE Prochlorperazine Edisylate 10 mg 05/20/20 20:36 05/20/20 20:55 Compazine 10 Mg/2 Ml IV 05/20/20 20:37 10 mg STAT ONE Administration Prochlorperazine Edisylate Confirm 05/20/20 20:53 Compazine 10 Mg/2 Ml Administered 05/20/20 20:54 Dose 10 mg .ROUTE .[facility] ONE Lab/Rad Data: Laboratory Result Diagrams 05/20/20 20:59 05/20/20 20:59 Laboratory Results 05/20/20 05/20/20 05/20/20 Range/Units 21:58 21:58 20:59 WBC (4.0-10.5) K/mm3 RBC (4.1-5.6) M/mm3 Hgb (12.5-18.0) gm/dl Hct (42-50) % MCV (78-100) fl MCH (26-32) pg MCHC (32-36) g/dl RDW (11.5-14.0) % Plt Count (150-450) K/mm3 MPV (7.5-11.0) fl Gran % (36.0-66.0) % Eos # (Auto) (0-0.5) Absolute Lymphs (auto) (1.0-4.6) Absolute Monos (auto) (0.0-1.3) Lymphocytes % (24.0-44.0) % Monocytes % (0.0-12.0) % Eosinophils % (0.00-5.0) % Basophils % (0.0-0.4) % Absolute Granulocytes (1.4-6.9) Basophils # (0-0.4) Sodium 137 (137-145) mmol/L Potassium 4.0 (3.5-5.1) mmol/L Chloride 104 (98-107) mmol/L Carbon Dioxide 24 (22-30) mmol/L Anion Gap 13.2 (5-15) MEQ/L BUN 8 L (9-20) mg/dL Creatinine 0.78 (0.66-1.25) mg/dL Estimated GFR > 60.0 ML/MIN Glucose 107 H (74-106) mg/dL Calcium 9.2 (8.4-10.2) mg/dL Total Bilirubin 0.80 (0.2-1.3) mg/dL AST 24 (17-59) U/L ALT 24 (0-50) U/L Alkaline Phosphatase 126 (38-126) U/L Serum Total Protein 7.7 (6.3-8.2) g/dL Albumin 4.4 (3.5-5.0) g/dL Urine Color YELLOW (YELLOW) Urine Appearance CLEAR (CLEAR) Urine pH 7.0 (5-6) Ur Specific [place] 1.008 (1.005-1.025) Urine Protein NEGATIVE (Negative) Urine Ketones NEGATIVE (NEGATIVE) Urine Blood NEGATIVE (0-5) Aroldo/ul Urine Nitrite NEGATIVE (NEGATIVE) Urine Bilirubin NEGATIVE (NEGATIVE) Urine Urobilinogen NEGATIVE (0-1) mg/dL Ur Leukocyte Esterase NEGATIVE (NEGATIVE) Urine WBC (Auto) NONE (0-5) /HPF Urine RBC (Auto) NONE (0-2) /HPF U Epithel Cells (Auto) NONE (FEW) /HPF Urine Bacteria (Auto) NONE (NEGATIVE) /HPF Urine Culture Reflexed NO (NO) Urine Glucose NEGATIVE (NEGATIVE) mg/dL Urine Opiates Level NEGATIVE (NEGATIVE) Ur Methadone NEGATIVE (NEGATIVE) Urine Barbiturates NEGATIVE (NEGATIVE) Ur Phencyclidine (PCP) NEGATIVE (NEGATIVE) Urine Amphetamine NEGATIVE (NEGATIVE) U Benzodiazepine Level NEGATIVE (NEGATIVE) Urine Cocaine NEGATIVE (NEGATIVE) Urine Marijuana (THC) NEGATIVE (NEGATIVE) 05/20/20 Range/Units 20:59 WBC 8.2 (4.0-10.5) K/mm3 RBC 5.09 (4.1-5.6) M/mm3 Hgb 15.7 (12.5-18.0) gm/dl Hct 47.2 (42-50) % MCV 92.7 (78-100) fl MCH 30.8 (26-32) pg MCHC 33.3 (32-36) g/dl RDW 14.9 H (11.5-14.0) % Plt Count 205 (150-450) K/mm3 MPV 9.6 (7.5-11.0) fl Gran % 63.4 (36.0-66.0) % Eos # (Auto) 0.11 (0-0.5) Absolute Lymphs (auto) 2.24 (1.0-4.6) Absolute Monos (auto) 0.63 (0.0-1.3) Lymphocytes % 27.4 (24.0-44.0) % Monocytes % 7.7 (0.0-12.0) % Eosinophils % 1.3 (0.00-5.0) % Basophils % 0.2 (0.0-0.4) % Absolute Granulocytes 5.17 (1.4-6.9) Basophils # 0.02 (0-0.4) Sodium (137-145) mmol/L Potassium (3.5-5.1) mmol/L Chloride (98-107) mmol/L Carbon Dioxide (22-30) mmol/L Anion Gap (5-15) MEQ/L BUN (9-20) mg/dL Creatinine (0.66-1.25) mg/dL Estimated GFR ML/MIN Glucose (74-106) mg/dL Calcium (8.4-10.2) mg/dL Total Bilirubin (0.2-1.3) mg/dL AST (17-59) U/L ALT (0-50) U/L Alkaline Phosphatase (38-126) U/L Serum Total Protein (6.3-8.2) g/dL Albumin (3.5-5.0) g/dL Urine Color (YELLOW) Urine Appearance (CLEAR) Urine pH (5-6) Ur Specific [place] (1.005-1.025) Urine Protein (Negative) Urine Ketones (NEGATIVE) Urine Blood (0-5) Aroldo/ul Urine Nitrite (NEGATIVE) Urine Bilirubin (NEGATIVE) Urine Urobilinogen (0-1) mg/dL Ur Leukocyte Esterase (NEGATIVE) Urine WBC (Auto) (0-5) /HPF Urine RBC (Auto) (0-2) /HPF U Epithel Cells (Auto) (FEW) /HPF Urine Bacteria (Auto) (NEGATIVE) /HPF Urine Culture Reflexed (NO) Urine Glucose (NEGATIVE) mg/dL Urine Opiates Level (NEGATIVE) Ur Methadone (NEGATIVE) Urine Barbiturates (NEGATIVE) Ur Phencyclidine (PCP) (NEGATIVE) Urine Amphetamine (NEGATIVE) U Benzodiazepine Level (NEGATIVE) Urine Cocaine (NEGATIVE) Urine Marijuana (THC) (NEGATIVE) - Progress Progress: improved Air Movement: good Progress Note: 05/20/20 23:14 Patient reassessed. Headache essentially resolved. Patient rates pain 2 out of 10. Repeat neuro exam within normal limits. CT head reveals sinus disease and polyp. No acute intracranial pathology. Patient ambulatory in our ED. Patient states he feels well. Patient requesting discharge. Patient requesting work note. Work note provided. Patient will follow up with his primary care doctor and obtain his Imitrex. Patient voices no other complaints at this time. Will discharge home. 05/20/20 23:15 Blood Culture(s) Obtained: No Antibiotics given: No Counseled pt/family regarding: lab results, diagnosis, need for follow-up, rad results - Departure Departure Disposition: Home Clinical Impression: Sinusitis with nasal polyps, Migraine Condition: Stable Critical Care Time: No Referrals: MARY BURGESS [Primary Care Provider] - Additional Instructions: Discharge/Care Plan BHARATH ESPARZA ROBIN was seen on 05/20/20 in the Emergency Room. The patient was counseled regarding Diagnosis,Lab results, Imaging studies, need for follow up and when to return to the Emergency Room. Prescriptions given: Discharge Note I have spoken with the patient and/or caregivers. I have explained the patient's condition, diagnosis and treatment plan based on the information available to me at this time. I have answered the patient's and/or caregiver's questions and addressed any concerns. The patient and/or caregivers have as good understanding of the patient's diagnosis, condition and treatment plan as can be expected at this point. The vital signs have been stable. The patient's condition is stable and appropriate for discharge from the emergency department. The patient will pursue further outpatient evaluation with the primary care physician or other designated or consulting physician as outlined in the discharge instructions. The patient and/or caregivers are agreeable to this plan of care and follow-up instructions have been explained in detail. The patient and/or caregivers have received these instruction. The patient/and or caregivers are aware that any significant change in condition or worsening of symptoms should prompt an immediate return to this or the closest emergency department or call 911.
[2020-05-20 22:12] LABS: Appearance CLEAR (CLEAR); Bilirubin NEGATIVE (NEGATIVE); Blood NEGATIVE Ery/ul (0-5); Glucose NEGATIVE (NEGATIVE); Ketones NEGATIVE (NEGATIVE); Leukocyte Esterase NEGATIVE (NEGATIVE); Nitrite NEGATIVE (NEGATIVE); Protein,Urine Dip NEGATIVE (Negative); Specific Gravity 1.008 (1.005-1.025); Urobilinogen NEGATIVE mg/dL (0-1)
[2020-05-20 22:13] VITALS: PULSE 74
[2020-05-20 22:24] LABS: Amphetamine,Urine NEGATIVE (NEGATIVE); Barbiturate,Urine NEGATIVE (NEGATIVE); Benzodiazepine,Urine NEGATIVE (NEGATIVE); Cocaine,Urine NEGATIVE (NEGATIVE); Methadone,Urine NEGATIVE (NEGATIVE); Opiate,Urine NEGATIVE (NEGATIVE); PCP,Urine NEGATIVE (NEGATIVE); THC,Urine NEGATIVE (NEGATIVE)
[2020-05-20 23:13] VITALS: BP 119/83
--- NOTE | 2020-05-21 08:48 | XRAY ---
Indication: Right-sided migraine. Dizziness. Multiple contiguous axial images obtained through the head without contrast. Comparison: None Normal appearing brain parenchyma, ventricles, and bony calvarium. There is mild mucosal thickening of both ethmoid, left maxillary, and lesser degree right sphenoid sinuses. Left frontal sinus demonstrates 1 cm polyp/retention cyst. Impression: 1. Paranasal sinus disease as detailed. 2. Remaining CT head without contrast exam is negative.
== END 2020-05-20 23:07 | disposition home or self-care (01) ==
LOC: ED 20:18
DX: G43.909 Migraine, unspecified, not intractable, without status migrainosus (principal); R42 Dizziness and giddiness; R11.2 Nausea with vomiting, unspecified; J32.9 Chronic sinusitis, unspecified; J33.8 Other polyp of sinus; E78.5 Hyperlipidemia, unspecified; E03.9 Hypothyroidism, unspecified; Z79.899 Other long term (current) drug therapy
CPT/HCPCS: 36000; 36415; 70450; 80053; 80307; 81001; 85025; 96360; 96374; 96375; 99284; J1200; J1885

== ENCOUNTER 2020-07-05 15:31 | Emergency (ER) | payer OTHER ==
--- NOTE | 2020-07-05 15:39 | ERPHSYRPT ---
- History of Present Illness Time Seen by Provider: 07/05/20 15:39 Historian: patient Exam Limitations: no limitations Physician History: This is a 45-year-old white male who presents with headache, myalgias, arthralgias and vomiting for 2 days. He has no known exposures. Patient does have chronic muscle spasms in his neck and has a history of migraines. Patient states that he did take his Imitrex but that did not help his migraine headache. Patient is on a few medications for anxiety, and insomnia, depression. Patient has also a chronic history of lumbosacral sprain and strain. Patient has hypothyroidism. Patient has not had a cough. He did complain of some abdominal wall pain after vomiting started as well as some chest discomfort. He is not short of breath. No one around him has similar symptoms. Timing/Duration: day(s) (2) Activities at Onset: none Quality: aching Pain Radiation: no radiation Severity of Pain-Max: mild Severity of Pain-Current: mild Modifying Factors: Improves With: vomiting Associated Symptoms: nausea, neck pain (Chronic), vomiting, other (Headache) Previous symptoms: same symptoms as today, no recent treatment Allergies/Adverse Reactions: No Known Drug Allergies Allergy (Verified 07/05/20 16:21) Home Medications: Levothyroxine Sodium 100 mcg PO DAILY 01/18/19 [History] PANTOPRAZOLE 40 mg Tablet [Protonix 40MG Tablet] 40 mg PO DAILY 01/18/19 [History] Bupropion HCl Xl 150 mg [Wellbutrin XL 150 MG] 150 mg PO DAILY 07/15/19 [History] Sertraline HCl 50 mg [Zoloft 50 mg Tablet] 200 mg PO DAILY 07/15/19 [History] Aspirin EC 81 mg [Ecotrin 81 mg] 81 mg PO DAILY 07/31/19 [History] Atorvastatin Calcium [Lipitor] 40 mg PO DAILY 07/31/19 [History] Trazodone HCl [Desyrel] 200 mg PO HS 04/22/20 [History] Hx Tetanus, Diphtheria Vaccination/Date Given: Yes Hx Influenza Vaccination/Date Given: Yes Hx Pneumococcal Vaccination/Date Given: No Travel Risk - International Travel Have you traveled outside of the country in past 3 weeks: No - Coronavirus Screening Are you exhibiting any of the following symptoms?: Yes Symptoms: Vomiting/Diarrhea, Headaches/Body Aches/Fatigue Close contact with a COVID-19 positive Pt in past 14-21 Days: No - Review of Systems Constitutional: No Symptoms Eyes: No Symptoms Ears, Nose, & Throat: No Symptoms Respiratory: No Symptoms Cardiac: No Symptoms Abdominal/Gastrointestinal: Nausea, Vomiting Genitourinary Symptoms: No Symptoms Musculoskeletal: Arthralgias, Myalgias Skin: No Symptoms Neurological: Headache Psychological: No Symptoms Endocrine: No Symptoms Hematologic/Lymphatic: No Symptoms Immunological/Allergic: No Symptoms All Other Systems: Reviewed and Negative - Past Medical History Pertinent Past Medical History: Yes Neurological History: Migraines ENT History: No Pertinent History Cardiac History: High Cholesterol Respiratory History: No Pertinent History Endocrine Medical History: Hypothyroidism Musculoskeletal History: No Pertinent History GI Medical History: GERD History: Other Psycho-Social History: Anxiety, Depression Male Reproductive Disorders: No Pertinent History Other Medical History: spontaneous pneumo, appendectomy, r knee surgery x2, ulnar nerve release surgery, kidney stone. vertigo - Past Surgical History Past Surgical History: Yes Neuro Surgical History: No Pertinent History Cardiac: No Pertinent History Respiratory: Other Gastrointestinal: Appendectomy Genitourinary: No Pertinent History Musculoskeletal: Orthopedic Surgery Male Surgical History: No Pertinent History Other Surgical History: right knee x3, elbow surgery - Social History Smoking Status: Former smoker Exposure to second hand smoke: No Drug Use: none Patient Lives Alone: Yes Significant Family History: no pertinent family hx - Nursing Vital Signs Nursing Vital Signs: Initial Vital Signs Temperature 98.5 F 07/05/20 16:08 Pulse Rate 84 07/05/20 16:08 Respiratory Rate 18 07/05/20 16:08 Blood Pressure 122/92 07/05/20 16:08 O2 Sat by Pulse Oximetry 97 07/05/20 16:08 Pain Scale Pain Intensity 5 - Physical Exam General Appearance: mild distress, alert, anxiety Eye Exam: PERRL/EOMI, eyes nml inspection Ears, Nose, Throat Exam: normal ENT inspection, moist mucous membranes Neck Exam: normal inspection, non-tender, supple, full range of motion Respiratory Exam: normal breath sounds, lungs clear, airway intact, No chest tenderness, No respiratory distress Cardiovascular Exam: regular rate/rhythm, normal heart sounds, normal peripheral pulses Gastrointestinal/Abdomen Exam: soft, normal bowel sounds, No tenderness Rectal Exam: not done Back Exam: normal inspection, normal range of motion, No CVA tenderness, No vertebral tenderness Extremity Exam: normal inspection, normal range of motion, pelvis stable Neurologic Exam: alert, 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, 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 Comparison EKG was to ) Ordered Tests: Active Orders 24 hr Category Date Time Status Clean Catch Urine Specimen STAT Care 07/05/20 16:19 Active EKG-ER Only STAT Care 07/05/20 16:19 Active IV Insertion STAT Care 07/05/20 16:19 Active HEAD WITHOUT CONTRAST [CT] Stat Exams 07/05/20 16:50 Completed AMYLASE Stat Lab 07/05/20 16:43 Completed BLOOD CULTURE Stat Lab 07/05/20 16:43 Received CBC W DIFF Stat Lab 07/05/20 16:43 Completed CMP Stat Lab 07/05/20 16:43 Completed CULTURE,URINE Stat Lab 07/05/20 17:55 Received INFLUENZA A+B TERI Stat Lab 07/05/20 16:43 Completed LIPASE Stat Lab 07/05/20 16:43 Completed Lactic Acid Stat Lab 07/05/20 16:19 Completed [place] Screen Stat Lab 07/05/20 16:43 Completed TROPONIN Q3H Lab 07/05/20 16:43 Completed TROPONIN Q3H Lab 07/05/20 19:30 Ordered TROPONIN Q3H Lab 07/05/20 22:30 Ordered TROPONIN Q3H Lab 07/06/20 01:30 Ordered TROPONIN Q3H Lab 07/06/20 04:30 Ordered UA W/RFX UR CULTURE Stat Lab 07/05/20 17:55 Completed Urine Triage Profile Stat Lab 07/05/20 17:52 Received Medication Summary Generic Name Dose Route Start Last Admin Trade Name Freq PRN Reason Stop Dose Admin Sodium Chloride 500 mls @ 500 mls/hr 07/05/20 17:16 07/05/20 17:34 Sodium Chloride 0.9% 500 Ml IV 07/05/20 18:15 Infused .Q1H ONE Infusion Discontinued Medications Generic Name Dose Route Start Last Admin Trade Name Olivia PRN Reason Stop Dose Admin Famotidine 20 mg 07/05/20 16:19 07/05/20 16:30 Pepcid 20 Mg Vial IV 07/05/20 16:20 20 mg STAT ONE Administration Famotidine Confirm 07/05/20 16:25 Pepcid 20 Mg Vial Administered 07/05/20 16:26 Dose 20 mg IV .STK-MED ONE Hydromorphone HCl 1 mg 07/05/20 16:19 07/05/20 16:30 Hydromorphone 1 Mg/Ml Injection IV 07/05/20 16:20 1 mg STAT ONE Administration Hydromorphone HCl Confirm 07/05/20 16:25 Hydromorphone 1 Mg/Ml Injection Administered 07/05/20 16:26 Dose 1 mg .ROUTE .STK-MED ONE Hydromorphone HCl 1 mg 07/05/20 18:02 07/05/20 18:05 Hydromorphone 1 Mg/Ml Injection IV 07/05/20 18:03 1 mg STAT ONE Administration Hydromorphone HCl Confirm 07/05/20 18:04 Hydromorphone 1 Mg/Ml Injection Administered 07/05/20 18:05 Dose 1 mg .ROUTE .STK-MED ONE Sodium Chloride 1,000 mls @ 999 mls/hr 07/05/20 16:19 07/05/20 17:31 Sodium Chloride 0.9% 1000 Ml IV 07/05/20 17:19 Infused .Q1H1M STA Infusion Sodium Chloride Confirm 07/05/20 16:25 Sodium Chloride 0.9% 1000 Ml Administered 07/05/20 16:26 Dose 1,000 mls @ ud .ROUTE .STK-MED ONE Sodium Chloride Confirm 07/05/20 17:20 Sodium Chloride 0.9% 500 Ml Administered 07/05/20 17:21 Dose 500 mls @ ud IV .STK-MED ONE Ondansetron HCl 4 mg 07/05/20 16:24 07/05/20 16:29 Zofran 4 Mg/2 Ml Vial IV 07/05/20 16:25 4 mg STAT ONE Administration Ondansetron HCl Confirm 07/05/20 16:25 Zofran 4 Mg/2 Ml Vial Administered 07/05/20 16:26 Dose 4 mg .ROUTE .STK-MED ONE Pantoprazole Sodium 40 mg 07/05/20 16:19 07/05/20 16:30 Protonix 40 Mg Iv IV 07/05/20 16:20 40 mg STAT ONE Administration Pantoprazole Sodium Confirm 07/05/20 16:25 Protonix 40 Mg Iv Administered 07/05/20 16:26 Dose 40 mg IV .STK-MED ONE Lab/Rad Data: Laboratory Result Diagrams 07/05/20 16:43 07/05/20 16:43 Laboratory Results 07/05/20 07/05/20 07/05/20 Range/Units 17:55 16:43 16:43 WBC (4.0-10.5) K/mm3 RBC (4.1-5.6) M/mm3 Hgb (12.5-18.0) gm/dl Hct (42-50) % MCV (78-100) fl MCH (26-32) pg MCHC (32-36) g/dl RDW (11.5-14.0) % Plt Count (150-450) K/mm3 MPV (7.5-11.0) fl Gran % (36.0-66.0) % Eos # (Auto) (0-0.5) Absolute Lymphs (auto) (1.0-4.6) Absolute Monos (auto) (0.0-1.3) Lymphocytes % (24.0-44.0) % Monocytes % (0.0-12.0) % Eosinophils % (0.00-5.0) % Basophils % (0.0-0.4) % Absolute Granulocytes (1.4-6.9) Basophils # (0-0.4) Sodium (137-145) mmol/L Potassium (3.5-5.1) mmol/L Chloride (98-107) mmol/L Carbon Dioxide (22-30) mmol/L Anion Gap (5-15) MEQ/L BUN (9-20) mg/dL Creatinine (0.66-1.25) mg/dL Estimated GFR ML/MIN Glucose (74-106) mg/dL Lactic Acid (0.4-2.0) Calcium (8.4-10.2) mg/dL Total Bilirubin (0.2-1.3) mg/dL AST (17-59) U/L ALT (0-50) U/L Alkaline Phosphatase (38-126) U/L Troponin I < 0.012 (0.000-0.034) ng/mL Serum Total Protein (6.3-8.2) g/dL Albumin (3.5-5.0) g/dL Amylase (30-110) U/L Lipase (23-300) U/L Urine Color YELLOW (YELLOW) Urine Appearance CLEAR (CLEAR) Urine pH 7.0 (5-6) Ur Specific [place] 1.012 (1.005-1.025) Urine Protein NEGATIVE (Negative) Urine Ketones NEGATIVE (NEGATIVE) Urine Blood NEGATIVE (0-5) [place]/ul Urine Nitrite NEGATIVE (NEGATIVE) Urine Bilirubin NEGATIVE (NEGATIVE) Urine Urobilinogen NEGATIVE (0-1) mg/dL Ur Leukocyte Esterase NEGATIVE (NEGATIVE) Urine WBC (Auto) 6-10 (0-5) /HPF Urine RBC (Auto) NONE (0-2) /HPF U Epithel Cells (Auto) NONE (FEW) /HPF Urine Bacteria (Auto) RARE (NEGATIVE) /HPF Urine Mucus (Auto) SLIGHT (NEGATIVE) /HPF Urine Culture Reflexed YES (NO) Urine Glucose NEGATIVE (NEGATIVE) mg/dL Monoscreen NEGATIVE (Negative) Influenza Type A Ag (NEGATIVE) Influenza Type B Ag (NEGATIVE) Group A Strep Antibody (NEGATIVE) 07/05/20 07/05/20 07/05/20 Range/Units 16:43 16:43 16:43 WBC (4.0-10.5) K/mm3 RBC (4.1-5.6) M/mm3 Hgb (12.5-18.0) gm/dl Hct (42-50) % MCV (78-100) fl MCH (26-32) pg MCHC (32-36) g/dl RDW (11.5-14.0) % Plt Count (150-450) K/mm3 MPV (7.5-11.0) fl Gran % (36.0-66.0) % Eos # (Auto) (0-0.5) Absolute Lymphs (auto) (1.0-4.6) Absolute Monos (auto) (0.0-1.3) Lymphocytes % (24.0-44.0) % Monocytes % (0.0-12.0) % Eosinophils % (0.00-5.0) % Basophils % (0.0-0.4) % Absolute Granulocytes (1.4-6.9) Basophils # (0-0.4) Sodium 138 (137-145) mmol/L Potassium 3.5 (3.5-5.1) mmol/L Chloride 103 (98-107) mmol/L Carbon Dioxide 23 (22-30) mmol/L Anion Gap 15.1 H (5-15) MEQ/L BUN 12 (9-20) mg/dL Creatinine 0.83 (0.66-1.25) mg/dL Estimated GFR > 60.0 ML/MIN Glucose 102 (74-106) mg/dL Lactic Acid (0.4-2.0) Calcium 8.9 (8.4-10.2) mg/dL Total Bilirubin 0.50 (0.2-1.3) mg/dL AST 29 (17-59) U/L ALT 25 (0-50) U/L Alkaline Phosphatase 112 (38-126) U/L Troponin I (0.000-0.034) ng/mL Serum Total Protein 7.4 (6.3-8.2) g/dL Albumin 4.3 (3.5-5.0) g/dL Amylase 61 (30-110) U/L Lipase 84 (23-300) U/L Urine Color (YELLOW) Urine Appearance (CLEAR) Urine pH (5-6) Ur Specific [place] (1.005-1.025) Urine Protein (Negative) Urine Ketones (NEGATIVE) Urine Blood (0-5) [place]/ul Urine Nitrite (NEGATIVE) Urine Bilirubin (NEGATIVE) Urine Urobilinogen (0-1) mg/dL Ur Leukocyte Esterase (NEGATIVE) Urine WBC (Auto) (0-5) /HPF Urine RBC (Auto) (0-2) /HPF U Epithel Cells (Auto) (FEW) /HPF Urine Bacteria (Auto) (NEGATIVE) /HPF Urine Mucus (Auto) (NEGATIVE) /HPF Urine Culture Reflexed (NO) Urine Glucose (NEGATIVE) mg/dL Monoscreen (Negative) Influenza Type A Ag NEGATIVE (NEGATIVE) Influenza Type B Ag NEGATIVE (NEGATIVE) Group A Strep Antibody NOT DETECTED (NEGATIVE) 07/05/20 07/05/20 Range/Units 16:43 16:19 WBC 9.5 (4.0-10.5) K/mm3 RBC 4.85 (4.1-5.6) M/mm3 Hgb 15.6 (12.5-18.0) gm/dl Hct 46.2 (42-50) % MCV 95.3 (78-100) fl MCH 32.2 H (26-32) pg MCHC 33.8 (32-36) g/dl RDW 14.4 H (11.5-14.0) % Plt Count 193 (150-450) K/mm3 MPV 9.7 (7.5-11.0) fl Gran % 70.5 H (36.0-66.0) % Eos # (Auto) 0.23 (0-0.5) Absolute Lymphs (auto) 1.93 (1.0-4.6) Absolute Monos (auto) 0.62 (0.0-1.3) Lymphocytes % 20.3 L (24.0-44.0) % Monocytes % 6.5 (0.0-12.0) % Eosinophils % 2.4 (0.00-5.0) % Basophils % 0.3 (0.0-0.4) % Absolute Granulocytes 6.69 (1.4-6.9) Basophils # 0.03 (0-0.4) Sodium (137-145) mmol/L Potassium (3.5-5.1) mmol/L Chloride (98-107) mmol/L Carbon Dioxide (22-30) mmol/L Anion Gap (5-15) MEQ/L BUN (9-20) mg/dL Creatinine (0.66-1.25) mg/dL Estimated GFR ML/MIN Glucose (74-106) mg/dL Lactic Acid 1.0 (0.4-2.0) Calcium (8.4-10.2) mg/dL Total Bilirubin (0.2-1.3) mg/dL AST (17-59) U/L ALT (0-50) U/L Alkaline Phosphatase (38-126) U/L Troponin I (0.000-0.034) ng/mL Serum Total Protein (6.3-8.2) g/dL Albumin (3.5-5.0) g/dL Amylase (30-110) U/L Lipase (23-300) U/L Urine Color (YELLOW) Urine Appearance (CLEAR) Urine pH (5-6) Ur Specific [place] (1.005-1.025) Urine Protein (Negative) Urine Ketones (NEGATIVE) Urine Blood (0-5) [place]/ul Urine Nitrite (NEGATIVE) Urine Bilirubin (NEGATIVE) Urine Urobilinogen (0-1) mg/dL Ur Leukocyte Esterase (NEGATIVE) Urine WBC (Auto) (0-5) /HPF Urine RBC (Auto) (0-2) /HPF U Epithel Cells (Auto) (FEW) /HPF Urine Bacteria (Auto) (NEGATIVE) /HPF Urine Mucus (Auto) (NEGATIVE) /HPF Urine Culture Reflexed (NO) Urine Glucose (NEGATIVE) mg/dL Monoscreen (Negative) Influenza Type A Ag (NEGATIVE) Influenza Type B Ag (NEGATIVE) Group A Strep Antibody (NEGATIVE) - Progress Progress: improved, pain not gone completely, re-examined Progress Note: 07/05/20 17:15 CAT scan of the head without contrast shows bilateral paranasal sinus disease 07/05/20 18:08 Medical decision making: This patient states that he still has a bit of a headache but it is improved. I offered him to do an outpatient COVID-19 test. He declines at this time. His sinusitis may be the culprit as far as his headache. We will await his urinalysis to determine if we need to provide him with any more fluids and if there is necessary treatment for urinary tract infection. Counseled pt/family regarding: lab results, diagnosis, need for follow-up, rad results - Departure Departure Disposition: Home Clinical Impression: Headache, Sinusitis, Vomiting Condition: Stable Critical Care Time: No Referrals: MARY BURGESS [Primary Care Provider] - Additional Instructions: Drink plenty of fluids. Take medication as prescribed. Return to the emergency department if symptoms worsen. Follow-up with your primary care physician for persistent, nonworsening symptoms Prescriptions: Azithromycin 250 mg [Zithromax 250 MG TABLET] 250 mg PO ZPACK #6 tablet Ondansetron HCl [Zofran] 4 mg PO TID PRN #10 tablet PRN Reason: Nausea/Vomiting
[2020-07-05] MEDS ORDERED: Pepcid 20 MG VIAL IV ONE ×2 (16:19→16:25)
[2020-07-05] MEDS ORDERED: PROTONIX 40 MG IV IV ONE ×2 (16:19→16:25)
[2020-07-05] MEDS ORDERED: Hydromorphone 1 mg/ml Injection IV ONE ×2 (16:19→18:02)
[2020-07-05] MEDS ORDERED: Sodium Chloride 0.9% 1000 ML 1,000 ML IV STA (16:19)
[2020-07-05] MEDS ORDERED: Zofran 4 MG/2 ML VIAL IV ONE (16:24)
[2020-07-05] MEDS ORDERED: Hydromorphone 1 mg/ml Injection ONE ×2 (16:25→18:04)
[2020-07-05] MEDS ORDERED: Sodium Chloride 0.9% 1000 ML 1,000 ML ONE (16:25)
[2020-07-05] MEDS ORDERED: Zofran 4 MG/2 ML VIAL ONE (16:25)
[2020-07-05 16:57] LABS: Absolute Neutrophil Ct (ANC) 6.69 (1.4-6.9); BASOPHIL % 0.3 % (0.0-0.4); Basophil (Absolute #) 0.03 (0-0.4); Eosinophil % 2.4 % (0.00-5.0); Eosinophil (Absolute #) 0.23 (0-0.5); Hematocrit 46.2 % (42-50); Hemoglobin 15.6 gm/dl (12.5-18.0); Lymphocyte (Absolute #) 1.93 (1.0-4.6); Lymphocytes % 20.3 % (24.0-44.0); Mean Cell Volume 95.3 fl (78-100); Mean Corpuscular Hemoglobin 32.2 pg (26-32); Mean Corpuscular Hgb Concent. 33.8 g/dl (32-36); Mean Platelet Volume 9.7 fl (7.5-11.0); Monocyte (Absolute #) 0.62 (0.0-1.3); Monocytes % 6.5 % (0.0-12.0); Neutrophil % 70.5 % (36.0-66.0); Platelet Count 193 K/mm3 (150-450); Red Blood Count 4.85 M/mm3 (4.1-5.6); Red Cell Distribution Width 14.4 % (11.5-14.0); White Blood Count 9.5 K/mm3 (4.0-10.5)
[2020-07-05 17:05] LABS: ALBUMIN 4.3 g/dL (3.5-5.0); ALKALINE PHOSPHATASE 112 U/L (38-126); AMYLASE 61 U/L (30-110); ANION GAP 15.1 MEQ/L (5-15); BLOOD UREA NITROGEN 12 mg/dL (9-20); CHLORIDE 103 mmol/L (98-107); Calcium 8.9 mg/dL (8.4-10.2); Carbon Dioxide 23 mmol/L (22-30); Creatinine 1 0.83 mg/dL (0.66-1.25); EST GLOMERULAR FILTRATION RATE > 60.0 ML/MIN; Glucose 102 mg/dL (74-106); LIPASE 84 U/L (23-300); Potassium 3.5 mmol/L (3.5-5.1); SGOT/AST 29 U/L (17-59); SGPT/ALT 25 U/L (0-50); SODIUM 138 mmol/L (137-145); Total Protein 7.4 g/dL (6.3-8.2)
--- NOTE | 2020-07-05 17:09 | XRAY ---
Indication: Headache and vomiting. Multiple contiguous axial images obtained through the head without contrast. Comparison: May 20, 2020. Normal appearing brain parenchyma, ventricles, and bony calvarium. Again mild/moderate mucosal thickening of the paranasal sinuses bilaterally and 1 cm left frontal sinus polyp/retention cyst. Mastoid air cells are clear. Impression: Again paranasal sinus disease including small left frontal sinus polyp/retention cyst. Remaining CT head without contrast exam is again normal.
[2020-07-05 17:14] LABS: INFLUENZA A NEGATIVE (NEGATIVE); INFLUENZA B NEGATIVE (NEGATIVE)
[2020-07-05] MEDS ORDERED: Sodium Chloride 0.9% 500 ML 500 ML IV ONE ×2 (17:16→17:20)
[2020-07-05 18:06] LABS: Appearance CLEAR (CLEAR); Bacteria RARE /HPF (NEGATIVE); Bilirubin NEGATIVE (NEGATIVE); Blood NEGATIVE Ery/ul (0-5); Glucose NEGATIVE (NEGATIVE); Ketones NEGATIVE (NEGATIVE); Leukocyte Esterase NEGATIVE (NEGATIVE); Mucus SLIGHT /HPF (NEGATIVE); Nitrite NEGATIVE (NEGATIVE); Protein,Urine Dip NEGATIVE (Negative); Specific Gravity 1.012 (1.005-1.025); Urobilinogen NEGATIVE mg/dL (0-1)
[2020-07-05 18:14] LABS: Amphetamine,Urine NEGATIVE (NEGATIVE); Barbiturate,Urine NEGATIVE (NEGATIVE); Benzodiazepine,Urine NEGATIVE (NEGATIVE); Cocaine,Urine NEGATIVE (NEGATIVE); Methadone,Urine NEGATIVE (NEGATIVE); Opiate,Urine NEGATIVE (NEGATIVE); PCP,Urine NEGATIVE (NEGATIVE); THC,Urine NEGATIVE (NEGATIVE)
[2020-07-05 18:25] VITALS: BP 130/89; PULSE 64; O2SAT 97
== END 2020-07-05 18:31 | disposition home or self-care (01) ==
LOC: ED 15:31
DX: R51.9 Headache, unspecified (principal); J32.9 Chronic sinusitis, unspecified; R11.10 Vomiting, unspecified
CPT/HCPCS: 36000; 36415; 70450; 80053; 80307; 81001; 82150; 83605; 83690; 84484; 85025; 86308; 87040; 87086; 87400; 87651; 93005; 96360; 96374; 96375; 96376; 99285; J1170; J2405